=== PATIENT | male | born 1970 | race African-American/Black ===

== ENCOUNTER 2020-02-01 13:24 | IRF | payer OTHER, SELFPAY ==
[2020-02-01 13:25] VITALS: BP 119/82; PULSE 89; RESP 18; TEMP 36.9; O2SAT 100; BMI 28.3
--- NOTE | 2020-02-01 13:36 | ADMGEN ---
This patient, Emir Guzmán, was admitted to [facility] Room 226-01. Patient/family oriented to hospital policies and general routines including ID bracelet, bed and alarms, visiting hours, pain management, procedures, bathroom and other care routines, personal items, smoking policy, room service/diet, and visiting hours. Valuables list has been completed. Information on how to activate the Rapid Response Team has been discussed. Patient/Family are encouraged to report perceived risks to care and to ask questions if they do not understand what they are told or what they should do.
[2020-02-01] MEDS: methocarbamoL 750 MG TABLET PO ×2 (14:52→20:29)
[2020-02-01] MEDS: SENNOSIDES 8.6 MG TABLET PO (18:01)
[2020-02-01] MEDS: MIRTAZAPINE 15 MG TABLET PO (20:29)
[2020-02-01 22:00] VITALS: BP 119/72; PULSE 89; RESP 18; TEMP 37; O2SAT 100
[2020-02-02] MEDS: methocarbamoL 750 MG TABLET PO ×4 (02:07→20:11)
[2020-02-02 04:23] LABS: Basophils Absolute Auto 0.1 K/mm3 (0.0-0.1); Basophils Percent Auto 0.7 % (0.2-1.2); Eosinophils Absolute Auto 0.6 K/mm3 (0-0.3); Eosinophils Percent Auto 4.6 % (0-4.4); Hematocrit 32.9 % (42.0-52.0); Immature Granulocyte Absolute 0.33 K/mm3 (0.00-0.031); Immature Granulocyte Percent A 2.6 % (0-0.5); Lymphocytes Percent Auto 21.7 % (18.3-44.2); Mean Corpuscular HGB Conc 30.4 g/dl (32-36); Mean Corpuscular Hemoglobin 22.9 pg (26-34); Mean Corpuscular Volume 75.3 fl (80-100); Monocytes Absolute Auto 1.5 K/mm3 (0.1-0.6); Monocytes Percent Auto 11.4 % (2.6-8.5); Neutrophils Absolute Auto 7.6 K/mm3 (1.3-6.7); Platelet Count Result 451 k/mm3 (150-375); Red Blood Count 4.37 M/mm3 (4.6-6.20); Red Cell Distribution Width 14.2 % (11.5-14.5); White Blood Count 12.9 K/mm3 (4.5-10.0)
[2020-02-02 04:36] LABS: Blood Urea Nitrogen 21 mg/dL (9-20); Calcium 9.2 mg/dL (8.4-10.2); Carbon Dioxide 27 mmol/L (22-30); Chloride 107 mmol/L (98-107); Estimated CRCL calculation 92 ml/min; Estimated Glomerular Filt Rate > 60; Glucose 108 mg/dL (75-110); Potassium 4.5 mmol/L (3.4-5.0); Sodium 139 mmol/L (137-145)
[2020-02-02 06:00] VITALS: BP 134/92; PULSE 89; RESP 16; TEMP 37.1; O2SAT 99
[2020-02-02] MEDS: SENNOSIDES 8.6 MG TABLET PO ×2 (09:04→17:24)
--- NOTE | 2020-02-02 12:00 | WPDREHABHP ---
H&P: HPI History of Present Illness Chief complaint: Cervical myelopathy Narrative: Emir Guzmán is a 50 year old male HISTORY OF PRESENT ILLNESS: The patient's primary rehab impairment category is 0 5-spinal cord dysfunction -nontraumatic The etiologic diagnosis is cervical myelopathy/ radiculopathy I saw this patient [id number] on February 02, 2020 at 12 noon The patient is a 50-year-old right-handed male with a past medical history of lumbar spondylosis status post L4-L5/L5-S1 spinal fusion who was found to have a broken screws at S1 as well as L5 on the left. MRI also demonstrated lumbar stenosis from L3-S1. He had a revision at L4-S1 as well as extension of the fusion to L3 with a TLIF L3-4 followed by L3 laminectomy on October 26, [address] Vidal. he recovered well and reported resolution of his preoperative back pain and lower extremity radicular symptoms. He presented to [facility] on January 25, 2020 with neck pain associated with bilateral upper extremity radicular pain, numbness to his fingers a loss of dexterity. MRI reveals cervical myelopathy/radiculopathy. Orthopedic / spine was consulted and the patient underwent C3-C6 laminectomy with the same physician. Postoperatively he has experienced acute postoperative pain and acute blood-loss anemia. His respiratory status is stable on room air. Physical and occupational therapy recommended inpatient rehabilitation is Therapy was initiated at the acute care facility and the patient transferred to us from [facility] on February 01, 2020 on FALLS OR SURGERIES: The patient has had major surgeries in the 100 days prior to admission. They had falls in the past year. They had falls with injury in the past year. PAST MEDICAL HISTORY: anxiety, cardiac dysrhythmia, carpal tunnel syndrome, cervical stenosis of the spinal cord, depression lumbar radiculopathy. PAST SURGICAL HISTORY: Carpal tunnel surgery, cervical fusion, cyst removal from head, bilateral inguinal and umbilical hernia repair, lumbar spine fusion, lumbar fusion with revision of the hardware October 26, 2019 SOCIAL HISTORY: the patient lives with his in a 1 level home with 3 steps to enter. He was independent prior. 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 The patient is available to assist in followingRehab if necessary. Current smoker 3 to 4 cigarettes per day no alcohol use quit in 2016 FAMILY HISTORY: not related to his current illness PRIOR LEVEL OF FUNCTION: Eating was INDEPENDENT Oral Care was INDEPENDENT Toileting Hygiene was INDEPENDENT Shower/Bathing was INDEPENDENT Upper Body Dressing was INDEPENDENT Lower Body Dressing was INDEPENDENT Donning/Harwood Footwear was INDEPENDENT Rolling Left and Right was INDEPENDENT Sit to Lying was INDEPENDENT Lying to Sitting was INDEPENDENT Sit to Stand was INDEPENDENT Bed to Chair Transfers was INDEPENDENT Toilet Transfers was INDEPENDENT Walking was INDEPENDENT 999 feet with NO DEVICE Wheelchair Mobility was NOT APPLICABLE PRIOR TO ADMISSION Stairs were completely independent CURRENT LEVEL OF FUNCTION: Eating was independent Oral Care was [ supervision or touch assistance] Toileting Hygiene was partial moderate Shower/Bathing was partial moderate Upper Body Dressing was partial moderate Lower Body Dressing was partial moderate Donning/Harwood Footwear was partial moderate Rolling Left and Right was partial moderate Sit to Lying was partial moderate Lying to Sitting was partial moderate Sit to Stand was partial moderate Bed to Chair Transfers were partial moderate Toilet Transfers were partial moderate Walking was 200 feet with rolling walker partial moderate Wheelchair Mobility was not tested Stairs were not tested GOALS: Our therapists will evaluate the patient and establish the goals. However, upon pre-admission screening
[2020-02-02 13:36] VITALS: BMI 28.3
[2020-02-02 14:00] VITALS: BP 129/82; PULSE 94; RESP 18; TEMP 37.7; O2SAT 100
--- NOTE | 2020-02-02 14:43 | PCCCNOTE ---
On 02/02/20, the student, [Ari Huertas ], provided care and completed [facility] documentation on this patient. I have reviewed the student's documentation and agree with the findings.
--- NOTE | 2020-02-02 15:54 | RPD ---
INDIVIDUALIZED PLAN OF CARE FOR Emir Guzmán Brief Synthesis of Pre-Admission Screen, Post-Admission Evaluation and Therapy Evaluations: The patient presents to rehab with cervical meylopathy/radiculopathy. Comorbidities include status post C3, C4, C5, C6 laminoplasty, acute postoperative pain, acute blood loss anemia, depression, and carpal tunnel syndrome.The patient?s needs will be best met in an intensive program vs. at a lower level of care. The patient requires physician services for medical oversight, management of post-op complications in setting of present comorbidities, and pain management. The patient requires nursing services for anticoagulation therapy, DVT prophylactics, infection protection, medication management and education, pressure relief, and wound care. Deficits include:ADLs, Balance, Endurance, Family Training/Education, Mobility, Pain Management, ROM, Safety, Strength, and Transfers. Iron Worker/Case Management for: Discharge Planning and Patient/Family Counseling Physical Therapy: 5 days per week for 90 minutes. Treatments may include: Therapeutic Exercise, Gait Training, Neuromuscular Re-education, Transfer Training, Community Reintegration, Bed Mobility, Patient/Family Education, Wheelchair Mobility Group Therapy/Concurrent Therapy Rationales: -Improve attention span during functional activities in a distracted environment. -Enhance problem solving and/or adequate judgment skills during functional activities in a distracted environment. -Promote increased safety awareness in a distracted environment to reduce fall risk with functional tasks, transfers, and ambulation to allow a more safe, self-sufficient return to the home environment. -Improve dynamic balance skills to promote safety and independence with functional activities in a distracted environment for maximum gain. Occupational Therapy: 5 days per week for 90 minutes. Treatments may include: Therapeutic Exercise, Therapeutic Activity, Cognitive Training, Self-Care Transfer Training, Community Reintegration, Home Management, Patient/Family Education, Wheelchair Mobility Training, Energy Conservation Training Group Therapy/Concurrent Therapy Rationales: -Allow therapist to observe and teach generalization and carry-over of skills learned in individual therapy. -Enhance problem solving and sequencing skills during therapeutic activities in a distracted environment. -Promote increased safety awareness in a realistic setting to reduce fall risk with functional tasks due to visual and verbal distractions. -Increase functional level with ADLs, ADL transfers and use of adaptive equipment through therapeutic activities with others while promoting safety to allow a more safe, self-sufficient return home. Medical Prognosis: Good Anticipated Length of Stay: 7 days Rehab Goals: Eating Goal: 06-Independent Oral Hygiene Goal: 06-Independent Toileting Hygiene Goal: 06-Independent Shower/Bathe Self Goal: 04-Supervision or Touching Assistance Upper Body Dressing Goal: 06-Independent Lower Body Dressing Goal: 06-Independent Putting On/Taking Off Footwear Goal: 06-Independent Rolling Left and Right Goal: 06-Independent Sit to Lying Goal: 06-Independent Lying to Sitting on Side of Bed Goal: 06-Independent Sit to Stand Goal: 06-Independent Chair/Nas-sp-Wdvsw Transfer Goal: 06-Independent Toilet Transfer Goal: 06-Independent Car Transfer Goal: 06-Independent Walk 10' Goal: 06-Independent Walk 50' with Two Turns Goal: 06-Independent Walk 150' Goal: 06-Independent Walk 10' on Uneven Surface Goal: 06-Independent 1 Step (Curb) Goal: 06-Independent 4 Steps Goal: 06-Independent 12 Steps Goal Score: 06-Independent Picking Up Object Goal: 06-Independent Wheel 50' with Two Turns Score: 06-Independent Wheel 150' Goal: 06-Independent Anticipated discharge destination: Home
[2020-02-02] MEDS: MIRTAZAPINE 15 MG TABLET PO (20:11)
[2020-02-02 20:35] VITALS: BP 121/81; PULSE 86; RESP 16; TEMP 37.2; O2SAT 100
[2020-02-03] MEDS: methocarbamoL 750 MG TABLET PO ×4 (01:44→20:21)
[2020-02-03 05:50] VITALS: BP 137/90; PULSE 92; RESP 16; TEMP 37.1; O2SAT 100
[2020-02-03 08:00] VITALS: PULSE 84; RESP 17; O2SAT 100
[2020-02-03] MEDS: SENNOSIDES 8.6 MG TABLET PO ×2 (09:40→18:16)
[2020-02-03 14:00] VITALS: BP 119/68; PULSE 84; RESP 17; TEMP 37.3; O2SAT 100
--- NOTE | 2020-02-03 17:10 | WPDNEURORHBP ---
Subjective Date/time seen: 02/03/20 17:10 Interval history: this 50-year-old gentleman is here after having had a surgery for his cervical myelopathy/radiculopathy and prior to that a few months before he had the lumbar fusion also. He is walking better and upper extremity strength is also improving however complains of sexual and bladder dysfunction in the form of very little erection and also dribbling or seems like overflow incontinence most likely related to spinal cord dysfunction and also the nerve root dysfunction in his lower back it is also likely the patient may be having the effects from the medication he is on He denies any headache nausea vomiting chest pain shortness of breath fever chills sore throat Review of Systems Review of Systems: All systems reviewed & are unremarkable except as noted in HPI and below Functional Status Ambulation Ability Ability to Ambulate 10 Feet: Minimum Assistance X 1 Ability to Ambulate 50 Feet With 2 Turns: Minimum Assistance X 1 Ability to Ambulate 150 Feet: Minimum Assistance X 1 Ambulation Assistive Devices: Walker, Wheeled Transfers Ability Ability to Transfer In/Out of Chair: Standby Assistance Exam Const: General: comfortable and no acute distress HENMT: General nose exam: Normal nares present Mouth: Yes moist mucous membranes Eyes: General: appearance normal, both eyes and all related structures Neck: Neck: supple and no JVD Other: the incision at the back part of his neck is clean and healthy Resp: Effort & Inspection: normal respiratory effort Auscultation: clear to auscultation bilaterally Cardio: Rate: regular rate Rhythm: regular rhythm GI: GI Palp: Yes Soft to palpation Auscultation: normal bowel sounds Back/Spine/Pelvis: Other: the incision in the lower back is clean and healthy Skin: General skin exam: normal color and no rashes or lesions noted Neuro: Other: patient's mental status is normal cranial examination is normal is strength the lower extremities is worse than the upper extremities he clearly has a paraparetic gait with relatively high tender reflexes in the lower extremities and also sensory deficit and decreased his strength in the upper extremities and is barely able to lift the upper extremities up to the horizontal level with relatively diminished reflexes and the sensory deficit Extrem: General: normal to inspection Psych: Mental Status: mental status grossly normal Objective Data Vital Signs Vital Signs: Vital Signs - 24 hr 02/02/20 20:35 02/03/20 05:50 02/03/20 14:00 Temperature 37.2 C 37.1 C 37.3 C Pulse Rate 86 92 84 Respiratory Rate 16 16 17 Blood Pressure 121/81 137/90 119/68 Pulse Oximetry 100 100 100 Intake/Output Intake/Output: Intake & Output 01/31/20 02/01/20 02/02/20 02/03/20 23:59 23:59 23:59 23:59 Intake Total 480 1080 600 Balance 480 1080 600 Meds/Results Medications: Active Medications Generic Name Dose Route Start Last Admin Trade Name Freq PRN Reason Stop Dose Admin Hydrocodone Bitart/Acetaminophen 1 tab 02/01/20 13:58 02/03/20 14:01 Circle 10-325 Mg PO 1 tab Q4H PRN Administration Pain Methocarbamol 750 mg 02/01/20 14:00 02/03/20 14:01 Robaxin PO 750 mg Q6H EDWIN Administration Mirtazapine 15 mg 02/01/20 21:00 02/02/20 20:11 Remeron PO 15 mg HS EDWIN Administration Olanzapine 2.5 mg 02/02/20 09:00 02/03/20 09:40 Zyprexa PO 2.5 mg DAILY EDWIN Administration Polyethylene Glycol 17 gm 02/01/20 13:58 Miralax PO DAILY PRN Constipation Senna 8.6 mg 02/01/20 17:00 02/03/20 09:40 Senokot Tablet PO 8.6 mg BID EDWIN Administration Progress Note: A&P Assessment and Plan (1) Bladder dysfunction: Code(s): N31.9 - Neuromuscular dysfunction of bladder, unspecified Status: Acute (2) Sexual dysfunction: Code(s): R37 - Sexual dysfunction, unspecified Status: Acute Additional Plan I will have ur
[2020-02-03 20:00] VITALS: BP 116/58; PULSE 89; RESP 20; TEMP 37.1; O2SAT 100
[2020-02-03] MEDS: MIRTAZAPINE 15 MG TABLET PO (20:21)
[2020-02-04] MEDS: methocarbamoL 750 MG TABLET PO ×4 (04:24→20:21)
[2020-02-04 05:31] LABS: Basophils Absolute Auto 0.1 K/mm3 (0.0-0.1); Basophils Percent Auto 0.6 % (0.2-1.2); Eosinophils Absolute Auto 0.4 K/mm3 (0-0.3); Eosinophils Percent Auto 2.9 % (0-4.4); Hematocrit 32.5 % (42.0-52.0); Hemoglobin 9.8 g/dL (14.0-18.0); Immature Granulocyte Absolute 0.57 K/mm3 (0.00-0.031); Immature Granulocyte Percent A 4.4 % (0-0.5); Lymphocytes Absolute Auto 2.78 K/mm3 (0.9-3.2); Lymphocytes Percent Auto 21.7 % (18.3-44.2); Mean Corpuscular HGB Conc 30.2 g/dl (32-36); Mean Corpuscular Hemoglobin 22.9 pg (26-34); Mean Corpuscular Volume 75.9 fl (80-100); Mean Platelet Volume 10.1 fl (7.4-10.4); Monocytes Absolute Auto 1.5 K/mm3 (0.1-0.6); Monocytes Percent Auto 11.6 % (2.6-8.5); Neutrophils Absolute Auto 7.5 K/mm3 (1.3-6.7); Neutrophils Percent Auto 58.8 % (45.5-73.1); Platelet Count Result 551 k/mm3 (150-375); Red Blood Count 4.28 M/mm3 (4.6-6.20); Red Cell Distribution Width 14.3 % (11.5-14.5); White Blood Count 12.8 K/mm3 (4.5-10.0)
[2020-02-04 05:39] VITALS: BP 108/67; PULSE 75; RESP 20; TEMP 37.2; O2SAT 100
[2020-02-04] MEDS: SENNOSIDES 8.6 MG TABLET PO ×2 (09:48→17:55)
[2020-02-04 09:50] VITALS: PULSE 78; RESP 20; O2SAT 99
[2020-02-04 14:00] VITALS: BP 129/76; PULSE 85; RESP 17; TEMP 37.2; O2SAT 100
--- NOTE | 2020-02-04 18:18 | WPDNEURORHBP ---
Subjective Date/time seen: 02/04/20 18:18 Interval history: this 48-year-old is here because of Cervical myelopathy/cervical radiculopathy and also status post lumbar fusion not too long low along with recent posterior cervical fusion he is complaining of headache which originates from his neck and I have asked the nurses to go ahead and give him a scheduled pain medication as the patient would need it beside the headache the patient denies any change in the mental status no fever no chills no sore throat no nausea no vomiting he is waiting for the urologist to see him for his sexual dysfunction and also the bladder dysfunction Review of Systems Review of Systems: All systems reviewed & are unremarkable except as noted in HPI and below Functional Status Ambulation Ability Ability to Ambulate 10 Feet: Contact Guard Ability to Ambulate 50 Feet With 2 Turns: Minimum Assistance X 1 Ability to Ambulate 150 Feet: Minimum Assistance X 1 Ambulation Assistive Devices: Walker, Wheeled Transfers Ability Ability to Transfer In/Out of Chair: Standby Assistance Exam Const: General: comfortable and no acute distress HENMT: General nose exam: Normal nares present Mouth: Yes moist mucous membranes Eyes: General: appearance normal, both eyes and all related structures Neck: Neck: supple and no JVD Other: the incision from the posterior cervical fusion is clean Resp: Effort & Inspection: normal respiratory effort Auscultation: clear to auscultation bilaterally Cardio: Rate: regular rate Rhythm: regular rhythm GI: GI Palp: Yes Soft to palpation Auscultation: normal bowel sounds Skin: General skin exam: normal color and no rashes or lesions noted Neuro: Other: patient's speech language functions are normal cranial examination is normal he is improving with his paraparesis and also the lower more than the upper extremity weakness Extrem: General: normal to inspection Psych: Mental Status: mental status grossly normal Objective Data Vital Signs Vital Signs: Vital Signs - 24 hr 02/03/20 20:00 02/04/20 05:39 02/04/20 09:50 Temperature 37.1 C 37.2 C Pulse Rate 89 75 78 Respiratory Rate 20 20 20 Blood Pressure 116/58 L 108/67 Pulse Oximetry 100 100 99 02/04/20 14:00 Temperature 37.2 C Pulse Rate 85 Respiratory Rate 17 Blood Pressure 129/76 Pulse Oximetry 100 Intake/Output Intake/Output: Intake & Output 06/11/02/02/20 02/03/20 02/04/20 23:59 23:59 23:59 23:59 Intake Total 480 1080 840 600 Balance 480 1080 840 600 Meds/Results Medications: Active Medications Generic Name Dose Route Start Last Admin Trade Name Freq PRN Reason Stop Dose Admin Hydrocodone Bitart/Acetaminophen 1 tab 02/04/20 17:00 [place] 10-325 Mg PO Q4HR EDWIN Methocarbamol 750 mg 02/01/20 14:00 02/04/20 13:42 Robaxin PO 750 mg Q6H EDWIN Administration Mirtazapine 15 mg 02/01/20 21:00 02/03/20 20:21 Remeron PO 15 mg HS EDWIN Administration Olanzapine 2.5 mg 02/02/20 09:00 02/04/20 09:48 Zyprexa PO 2.5 mg DAILY EDWIN Administration Polyethylene Glycol 17 gm 02/01/20 13:58 Miralax PO DAILY PRN Constipation Senna 8.6 mg 02/01/20 17:00 02/04/20 17:55 Senokot Tablet PO 8.6 mg BID EDWIN Administration Labs Labs: Laboratory Results - last 24 hr 02/04/20 04:53 WBC 12.8 H RBC 4.28 L Hgb 9.8 L Hct 32.5 L MCV 75.9 L MCH 22.9 L MCHC 30.2 L RDW 14.3 Plt Count 551 H MPV 10.1 Immature Gran % (Auto) 4.4 H Neut % (Auto) 58.8 Lymph % (Auto) 21.7 [place]idan % (Auto) 11.6 H Eos % (Auto) 2.9 Baso % (Auto) 0.6 Lymph # (Auto) 2.78 [place]idan # (Auto) 1.5 H Eos # (Auto) 0.4 H Baso # (Auto) 0.1 Abs Immat Gran (auto) 0.57 H Absolute Neuts (auto) 7.5 H Absolute Nucleated RBC 0.0 Nucleated RBC % 0.0 Progress Note: A&P Assessment and Plan (1) Sexual dysfunction: Code(s): R37 - Sexual dysfunction, unspecified Status: Acute (2) Bladde
--- NOTE | 2020-02-04 19:12 | WPDURCON ---
Assessment and Plan Assessment and plan (1) Sexual dysfunction: Code(s): R37 - Sexual dysfunction, unspecified Status: Acute Assessment and Plan: His main complaint is ED and delayed ejaculation. I arec a trial of oral agents. Generic Viagra or Cialis. Explained side effects and expected results. He will get a script from our office. If no success he may need injection and penile US with Dr. Callahan (2) Bladder dysfunction: Code(s): N31.9 - Neuromuscular dysfunction of bladder, unspecified Status: Acute Assessment and Plan: Voiding is reasonably normal. Offered to check as out patient and confirm low PVR. Urology Consult Note HPI Date Seen: 02/04/20 Requesting Physician: Guanakito Christianson MD Primary Care Provider: Ricci Ni, Consult Narrative Narrative: Emir Guzmán is a 50 year old male with admission to rehab with post operative lumbar and cervical recovery. He asked for evaluation secondary to ED. Has worsening ability to maintain erection and delayed orgasm. No nocturnal erections. Normal libido. Has not tried any treatment. Much worse since spine issues. Review of Systems Eyes: Eyes: Reports no additional eye complaints ENT: Reports system reviewed and no additional complaints, except as documented and Reports Normal hearing present Cardiovascular: Cardiovascular: Reports no additional cardiovascular complaints Respiratory: Respiratory: Reports no additional respiratory complaints Gastrointestinal: Gastrointestinal: Reports no additional gastrointestinal complaints Genitourinary: Genitourinary: Denies hematuria, Denies dysuria, Denies urinary frequency, Denies urinary hesitancy, Denies urinary incontinence and Denies urinary urgency Musculoskeletal: Musculoskeletal: Reports as per HPI, Reports back pain and Reports neck pain Neurologic: Reports as per HPI Psychiatric: Psychiatric: Reports as per HPI [facility] Past Medical History Medical History (Updated 02/03/20 @ 17:14 by Guanakito Christianson MD) Cervical myelopathy Cervical radiculopathy Cervical spondylosis Surgical History Surgical History (Updated 02/02/20 @ 13:38 by Guanakito Christianson MD) S/P cervical spinal fusion S/P lumbar fusion Social History Social History Years smoked: 25 Smoking status: Current some day smoker Tobacco type: cigarettes Second hand tobacco smoke exposure: Yes Alcohol intake: never Substance use: never Substance use type: does not use Spiritual care concerns: No Meds Home Medications and Allergies Home Medications Medication Instructions Recorded Confirmed Type hydrocodone-acetaminophen 1 tablet PO Q4H PRN 02/01/20 02/01/20 History methocarbamol 750 mg PO Q6H 02/01/20 02/01/20 History mirtazapine 15 mg PO HS 02/01/20 02/01/20 History olanzapine 2.5 mg PO DAILY 02/01/20 02/01/20 History polyethylene glycol 3350 [Miralax] 17 g PO DAILY PRN 02/01/20 02/01/20 History sennosides 8.6 mg PO BID 02/01/20 02/01/20 History Allergies Allergy/AdvReac Type Severity Reaction Status Date / Time No Known Allergies Allergy Verified 02/01/20 14:08 Vital Signs Vital Signs - 24 hr 02/03/20 20:00 02/04/20 05:39 02/04/20 09:50 Temperature 37.1 C 37.2 C Pulse Rate 89 75 78 Respiratory Rate 20 20 20 Blood Pressure 116/58 L 108/67 Pulse Oximetry 100 100 99 02/04/20 14:00 Temperature 37.2 C Pulse Rate 85 Respiratory Rate 17 Blood Pressure 129/76 Pulse Oximetry 100 Exam Const: General: no acute distress Eyes: General: appearance normal, both eyes and all related structures Resp: Effort & Inspection: normal respiratory effort Cardio: Rate: regular rate GI: Auscultation: normal bowel sounds : Male General Exam: Yes normal external exam Results Labs CBC & Chem 7: 02/04/20 04:53 02/02/20 04:17 Labs: Short CBC 02/04/20 Range/Units 04:53
[2020-02-04] MEDS: MIRTAZAPINE 15 MG TABLET PO (20:21)
[2020-02-04 22:00] VITALS: BP 109/68; PULSE 102; RESP 20; TEMP 37.2; O2SAT 100
[2020-02-05] MEDS: methocarbamoL 750 MG TABLET PO ×4 (01:26→21:21)
[2020-02-05 06:00] VITALS: BP 134/82; PULSE 78; RESP 20; TEMP 36.9; O2SAT 100
[2020-02-05] MEDS: LIDOCAINE 5% PATCH 1 PATCH TRANSDERM (09:41)
[2020-02-05] MEDS: SENNOSIDES 8.6 MG TABLET PO ×2 (09:42→18:45)
[2020-02-05] MEDS: NICOTINE (*PBKC) 14 MG PATCH 1 PATCH TRANSDERM (13:59)
[2020-02-05 14:00] VITALS: BP 110/73; PULSE 86; RESP 18; TEMP 37.3; O2SAT 100
[2020-02-05] MEDS: MIRTAZAPINE 15 MG TABLET PO (21:21)
[2020-02-05 22:00] VITALS: BP 130/71; PULSE 92; RESP 18; TEMP 37.7; O2SAT 100
[2020-02-06] MEDS: methocarbamoL 750 MG TABLET PO ×4 (01:31→20:32)
[2020-02-06 06:00] VITALS: BP 128/75; PULSE 82; RESP 18; TEMP 37.2; O2SAT 100
[2020-02-06 08:20] VITALS: PULSE 88; RESP 18; O2SAT 100
[2020-02-06] MEDS: LIDOCAINE 5% PATCH 1 PATCH TRANSDERM (08:49)
[2020-02-06] MEDS: SENNOSIDES 8.6 MG TABLET PO (08:51)
[2020-02-06] MEDS: NICOTINE (*PBKC) 14 MG PATCH 1 PATCH TRANSDERM (08:51)
--- NOTE | 2020-02-06 12:53 | PC.NURSE ---
Called Dr. Vidal office today regarding patient's janes being removed. Patient had been scheduled for staple removal on 02/06/2020 at 10:00 a.m. Left message for call back for instructions.
[2020-02-06 14:00] VITALS: BP 127/78; PULSE 88; RESP 18; TEMP 36.8; O2SAT 100
--- NOTE | 2020-02-06 15:11 | WPDNEURORHBP ---
Subjective Date/time seen: 02/06/20 15:11 Interval history: this 50-year-old has been here because of cervical myelopathy status post surgery on his cervical spine he has intact janes and will check with surgeon when the janes need to be removed. The urologist has seen him and put him on Viagra which will gait as outpatient when he has a follow-up is walking fairly good however he still is paraparetic has abnormal wide-based gait and tendency or a risk for fall which we discussed with him the team conference he denies any nausea vomiting chest pain shortness of breath his tells us that the patient has had a problem with drugs in the past and will keep that in mind and cut back on his requirement of the narcotics patient also sees a psychiatrist as per his for his underlying psych issues Review of Systems Review of Systems: All systems reviewed & are unremarkable except as noted in HPI and below Functional Status Ambulation Ability Ability to Ambulate 10 Feet: Contact Guard Ability to Ambulate 50 Feet With 2 Turns: Contact Guard Ability to Ambulate 150 Feet: Contact Guard Ambulation Assistive Devices: Walker, Wheeled Transfers Ability Ability to Transfer In/Out of Chair: Standby Assistance Exam Const: General: comfortable and no acute distress HENMT: General nose exam: Normal nares present Mouth: Yes moist mucous membranes Eyes: General: appearance normal, both eyes and all related structures Neck: Other: decision is clean and healthy Resp: Effort & Inspection: normal respiratory effort Auscultation: clear to auscultation bilaterally Cardio: Rate: regular rate Rhythm: regular rhythm GI: GI Palp: Yes Soft to palpation Auscultation: normal bowel sounds Skin: General skin exam: normal color and no rashes or lesions noted Neuro: Other: patient awake and alert well oriented with improving lower extremity more so than the a upper extremity weakness but has wide-based gait clearly at times ataxic and positive Romberg and and able to perform tiptoe and heel walking Extrem: General: normal to inspection Psych: Mental Status: mental status grossly normal Objective Data Vital Signs Vital Signs: Vital Signs - 24 hr 02/05/20 22:00 02/06/20 06:00 02/06/20 14:00 Temperature 37.7 C H 37.2 C 36.8 C Pulse Rate 92 82 88 Respiratory Rate 18 18 18 Blood Pressure 130/71 128/75 127/78 Pulse Oximetry 100 100 100 Intake/Output Intake/Output: Intake & Output 02/03/20 02/04/20 02/05/20 02/06/20 23:59 23:59 23:59 23:59 Intake Total 663 910 6903 1000 Balance 534 413 0091 1000 Meds/Results Medications: Active Medications Generic Name Dose Route Start Last Admin Trade Name Freq PRN Reason Stop Dose Admin Hydrocodone Bitart/Acetaminophen 1 tab 02/06/20 15:00 02/06/20 14:48 [place] 10-325 Mg PO 1 tab Q6H EDWIN Administration Lidocaine 1 patch 02/05/20 09:00 02/06/20 08:49 Lidoderm TRANSDERM 1 patch DAILY EDWNI Administration Methocarbamol 750 mg 02/01/20 14:00 02/06/20 14:48 Robaxin PO 750 mg Q6H EDWIN Administration Mirtazapine 15 mg 02/01/20 21:00 02/05/20 21:21 Remeron PO 15 mg HS EDWIN Administration Nicotine 1 patch 02/05/20 09:00 02/06/20 08:51 Nicoderm Cq 14 Mg TRANSDERM 1 patch QAM EDWIN Administration Olanzapine 2.5 mg 02/02/20 09:00 02/06/20 08:51 Zyprexa PO 2.5 mg DAILY EDWIN Administration Polyethylene Glycol 17 gm 02/01/20 13:58 Miralax PO DAILY PRN Constipation Senna 8.6 mg 02/01/20 17:00 02/06/20 08:51 Senokot Tablet PO 8.6 mg BID EDWIN Administration Progress Note: A&P Assessment and Plan (1) Sexual dysfunction: Code(s): R37 - Sexual dysfunction, unspecified Status: Acute (2) Bladder dysfunction: Code(s): N31.9 - Neuromuscular dysfunction of bladder, unspecified Status: Acute (3) S/P lumbar fusion: Code(s): Z98.1 - Arthrodesis status Status: Acute
[2020-02-06] MEDS: MIRTAZAPINE 15 MG TABLET PO (20:32)
[2020-02-06 22:00] VITALS: BP 143/86; PULSE 76; RESP 18; TEMP 36.7; O2SAT 100
[2020-02-07] MEDS: methocarbamoL 750 MG TABLET PO ×4 (02:39→21:14)
[2020-02-07 06:00] VITALS: BP 131/90; PULSE 80; RESP 18; TEMP 37.2; O2SAT 100
[2020-02-07] MEDS: LIDOCAINE 5% PATCH 1 PATCH TRANSDERM (09:39)
[2020-02-07] MEDS: NICOTINE (*PBKC) 14 MG PATCH 1 PATCH TRANSDERM (09:40)
--- NOTE | 2020-02-07 11:12 | PCPTNOTE ---
Emir Guzmán was evaluated for a wheeled walker on 02/07/2020 by this physical therapist. The wheeled walker will resolve patient's mobility limitations and will be used for ADL's within the home. The patient can safely use the wheeled walker. ?The wheeled walker will resolve the patient?s mobility deficits, including back pain, generalized LE weakness, and impaired balance/coordination. Jeannine Sams, PT, DPT
[2020-02-07 14:00] VITALS: BP 104/60; PULSE 86; RESP 17; TEMP 37.2; O2SAT 99
--- NOTE | 2020-02-07 15:02 | WPDNEURORHBP ---
Subjective Date/time seen: 02/07/20 15:02 Interval history: this 50-year-old is here after having had decompression for cervical spondylosis along with the cervical radiculopathy is pain is better controlled his engage in therapy and making progress denies any chest pain shortness of breath fever chills or sore throat Review of Systems Review of Systems: All systems reviewed & are unremarkable except as noted in HPI and below Functional Status Ambulation Ability Ability to Ambulate 10 Feet: Contact Guard Ability to Ambulate 50 Feet With 2 Turns: Minimum Assistance X 1 Ability to Ambulate 150 Feet: Minimum Assistance X 1 Ambulation Assistive Devices: Hand Hold Transfers Ability Ability to Transfer In/Out of Chair: Independent Exam Const: General: comfortable and no acute distress HENMT: General nose exam: Normal nares present Mouth: Yes moist mucous membranes Eyes: General: appearance normal, both eyes and all related structures Neck: Neck: supple and no JVD Other: incision is clean and healthy Resp: Effort & Inspection: normal respiratory effort Auscultation: clear to auscultation bilaterally Cardio: Rate: regular rate Rhythm: regular rhythm GI: GI Palp: Yes Soft to palpation Auscultation: normal bowel sounds Skin: General skin exam: normal color and no rashes or lesions noted Neuro: Other: mental status is normal and normal cranial examination and his generalized weakness is improving quite a bit Extrem: General: normal to inspection Psych: Mental Status: mental status grossly normal Objective Data Vital Signs Vital Signs: Vital Signs - 24 hr 02/06/20 22:00 02/07/20 06:00 Temperature 36.7 C 37.2 C Pulse Rate 76 80 Respiratory Rate 18 18 Blood Pressure 143/86 H 131/90 Pulse Oximetry 100 100 Intake/Output Intake/Output: Intake & Output 02/04/20 02/05/20 02/06/20 02/07/20 23:59 23:59 23:59 23:59 Intake Total 840 2040 1500 1000 Balance 840 2040 1500 1000 Meds/Results Medications: Active Medications Generic Name Dose Route Start Last Admin Trade Name Freq PRN Reason Stop Dose Admin Hydrocodone Bitart/Acetaminophen 1 tab 02/06/20 15:00 02/07/20 09:39 [place] 10-325 Mg PO 1 tab Q6H EDWIN Administration Lidocaine 1 patch 02/05/20 09:00 02/07/20 09:39 Lidoderm TRANSDERM 1 patch DAILY EDWIN Administration Methocarbamol 750 mg 02/01/20 14:00 02/07/20 09:39 Robaxin PO 750 mg Q6H EDWIN Administration Mirtazapine 15 mg 02/01/20 21:00 02/06/20 20:32 Remeron PO 15 mg HS EDWIN Administration Nicotine 1 patch 02/05/20 09:00 02/07/20 09:40 Nicoderm Cq 14 Mg TRANSDERM 1 patch QAM EDWIN Administration Olanzapine 2.5 mg 02/02/20 09:00 02/07/20 09:40 Zyprexa PO 2.5 mg DAILY EDWIN Administration Polyethylene Glycol 17 gm 02/01/20 13:58 Miralax PO DAILY PRN Constipation Senna 8.6 mg 02/01/20 17:00 02/07/20 09:41 Senokot Tablet PO Not Given BID EDWIN Progress Note: A&P Assessment and Plan (1) Sexual dysfunction: Code(s): R37 - Sexual dysfunction, unspecified Status: Acute (2) Bladder dysfunction: Code(s): N31.9 - Neuromuscular dysfunction of bladder, unspecified Status: Acute (3) S/P lumbar fusion: Code(s): Z98.1 - Arthrodesis status Status: Acute (4) S/P cervical spinal fusion: Code(s): Z98.1 - Arthrodesis status Status: Acute (5) Cervical radiculopathy: Code(s): M54.12 - Radiculopathy, cervical region Status: Acute (6) Cervical spondylosis: Code(s): M47.812 - Spondylosis without myelopathy or radiculopathy, cervical region Status: Acute (7) Cervical myelopathy: Code(s): G95.9 - Disease of spinal cord, unspecified Status: Acute Additional Plan I counseled him about not to start his hard labor which was doing before and also the need for further therapy he was receptive we will continue the medical manage
[2020-02-07] MEDS: SENNOSIDES 8.6 MG TABLET PO (15:46)
[2020-02-07] MEDS: MIRTAZAPINE 15 MG TABLET PO (21:13)
[2020-02-07 22:00] VITALS: BP 126/87; PULSE 91; RESP 18; TEMP 37.3; O2SAT 100
[2020-02-08] MEDS: methocarbamoL 750 MG TABLET PO ×4 (03:01→20:44)
[2020-02-08 06:00] VITALS: BP 127/86; PULSE 81; RESP 18; TEMP 37; O2SAT 100
[2020-02-08] MEDS: LIDOCAINE 5% PATCH 1 PATCH TRANSDERM (08:41)
[2020-02-08] MEDS: SENNOSIDES 8.6 MG TABLET PO ×2 (08:42→15:34)
[2020-02-08] MEDS: NICOTINE (*PBKC) 14 MG PATCH 1 PATCH TRANSDERM (08:42)
--- NOTE | 2020-02-08 11:25 | WPDNEURORHBP ---
Subjective Date/time seen: 02/08/20 11:25 Interval history: this 50-year-old is here because of cervical myelopathy / cervical Diederich radiculopathy superimposed on the lumbar canal stenosis post surgery and also post surgery the recent 1 being the cervical surgery the sutures have been removed couple of days ago his complaining of some itchy spot at his neck however the there is no lesions noted and the left side of the shoulder and there is no soft tissue swelling at [place] he is doing well in the rehab and will be ready to be discharged over the weekend He denies to have any headache nausea vomiting chest pain shortness of breath fever chills sore throat Review of Systems Review of Systems: All systems reviewed & are unremarkable except as noted in HPI and below Functional Status Ambulation Ability Ability to Ambulate 10 Feet: Independent Ability to Ambulate 50 Feet With 2 Turns: Independent Ability to Ambulate 150 Feet: Independent Ambulation Assistive Devices: Walker, Wheeled Transfers Ability Ability to Transfer In/Out of Chair: Independent Exam Const: General: comfortable and no acute distress HENMT: General nose exam: Normal nares present Mouth: Yes moist mucous membranes Eyes: General: appearance normal, both eyes and all related structures Neck: Neck: supple and no JVD Resp: Effort & Inspection: normal respiratory effort Auscultation: clear to auscultation bilaterally Cardio: Rate: regular rate Rhythm: regular rhythm GI: GI Palp: Yes Soft to palpation Auscultation: normal bowel sounds Skin: General skin exam: normal color and no rashes or lesions noted Neuro: Other: patient is awake and alert well oriented time place and person he has not any distress overall is mental status examination is normal cranial exam shows normal the strength of the lower extremities in the upper extremities are improving Extrem: General: normal to inspection Psych: Mental Status: mental status grossly normal Objective Data Vital Signs Vital Signs: Vital Signs - 24 hr 02/08/20 14:00 02/08/20 21:44 02/09/20 06:00 Temperature 37.5 C 37.7 C H 36.7 C Pulse Rate 86 95 77 Respiratory Rate 18 18 18 Blood Pressure 128/69 127/81 136/99 H Pulse Oximetry 100 100 100 Intake/Output Intake/Output: Intake & Output 02/06/20 02/07/20 02/08/20 02/09/20 23:59 23:59 23:59 23:59 Intake Total 1500 1500 1440 480 Balance 1500 1500 1440 480 Meds/Results Medications: Active Medications Generic Name Dose Route Start Last Admin Trade Name Freq PRN Reason Stop Dose Admin Hydrocodone Bitart/Acetaminophen 1 tab 02/06/20 15:00 02/09/20 08:52 [place] 10-325 Mg PO 1 tab Q6H EDWIN Administration Lidocaine 1 patch 02/05/20 09:00 02/09/20 08:52 Lidoderm TRANSDERM 1 patch DAILY EDWIN Administration Methocarbamol 750 mg 02/01/20 14:00 02/09/20 08:52 Robaxin PO 750 mg Q6H EDWIN Administration Mirtazapine 15 mg 02/01/20 21:00 02/08/20 20:44 Remeron PO 15 mg HS EDWIN Administration Nicotine 1 patch 02/05/20 09:00 02/09/20 08:53 Nicoderm Cq 14 Mg TRANSDERM 1 patch QAM EDWIN Administration Olanzapine 2.5 mg 02/02/20 09:00 02/09/20 08:53 Zyprexa PO 2.5 mg DAILY EDWIN Administration Polyethylene Glycol 17 gm 02/01/20 13:58 Miralax PO DAILY PRN Constipation Senna 8.6 mg 02/01/20 17:00 02/09/20 08:53 Senokot Tablet PO 8.6 mg BID EDWIN Administration Labs Labs: Laboratory Results - last 24 hr 02/09/20 02/09/20 04:49 04:49 WBC 10.6 H RBC 4.26 L Hgb 9.6 L Hct 31.6 L MCV 74.2 L MCH 22.5 L MCHC 30.4 L RDW 14.5 Plt Count 606 H MPV 9.2 Immature Gran % (Auto) 1.4 H Neut % (Auto) 58.0 Lymph % (Auto) 27.4 [place] % (Auto) 9.5 H Eos % (Auto) 3.0 Baso % (Auto) 0.7 Lymph # (Auto) 2.89 [place] # (Auto) 1.0 H Eos # (Auto) 0.3 Baso # (Auto) 0.1 Abs Immat Gran (auto) 0.15 H Absolute Neuts (auto) 6.1 Absol
--- NOTE | 2020-02-08 13:26 | PCDIET ---
Nutrition Follow-Up Complete: No nutrition diagnosis at this time. Nutrition Goal: Patient to consume 75% of meals or greater. Goal met. Patient consuming 100% of most meals on regular diet. Patient reports good appetite. Likes the food and denies c/o. Last recorded weight is 94.9 kg. Recommend obtaining new weight. Bowel Motility: Last documented BM on 02/06/20. Labs Reviewed: No new BMP available. Meds Noted: Remeron, Miralax, Senna Additional Notes: Neck incision well approximated. No documented pressure sores. Will continue to monitor with same goal. Nutrition Monitoring and Evaluation: Follow up in 7 days.
[2020-02-08 14:00] VITALS: BP 128/69; PULSE 86; RESP 18; TEMP 37.5; O2SAT 100
[2020-02-08] MEDS: MIRTAZAPINE 15 MG TABLET PO (20:44)
[2020-02-08 21:44] VITALS: BP 127/81; PULSE 95; RESP 18; TEMP 37.7; O2SAT 100
[2020-02-09] MEDS: methocarbamoL 750 MG TABLET PO ×4 (02:37→20:00)
[2020-02-09 05:05] LABS: Basophils Absolute Auto 0.1 K/mm3 (0.0-0.1); Basophils Percent Auto 0.7 % (0.2-1.2); Eosinophils Absolute Auto 0.3 K/mm3 (0-0.3); Hematocrit 31.6 % (42.0-52.0); Hemoglobin 9.6 g/dL (14.0-18.0); Immature Granulocyte Absolute 0.15 K/mm3 (0.00-0.031); Immature Granulocyte Percent A 1.4 % (0-0.5); Lymphocytes Absolute Auto 2.89 K/mm3 (0.9-3.2); Lymphocytes Percent Auto 27.4 % (18.3-44.2); Mean Corpuscular HGB Conc 30.4 g/dl (32-36); Mean Corpuscular Hemoglobin 22.5 pg (26-34); Mean Corpuscular Volume 74.2 fl (80-100); Mean Platelet Volume 9.2 fl (7.4-10.4); Monocytes Percent Auto 9.5 % (2.6-8.5); Neutrophils Absolute Auto 6.1 K/mm3 (1.3-6.7); Platelet Count Result 606 k/mm3 (150-375); Red Blood Count 4.26 M/mm3 (4.6-6.20); Red Cell Distribution Width 14.5 % (11.5-14.5); White Blood Count 10.6 K/mm3 (4.5-10.0)
[2020-02-09 05:16] LABS: Blood Urea Nitrogen 16 mg/dL (9-20); Carbon Dioxide 30 mmol/L (22-30); Chloride 103 mmol/L (98-107); Estimated CRCL calculation 92 ml/min; Estimated Glomerular Filt Rate > 60; Glucose 109 mg/dL (75-110); Potassium 4.5 mmol/L (3.4-5.0); Sodium 137 mmol/L (137-145)
[2020-02-09 06:00] VITALS: BP 136/99; PULSE 77; RESP 18; TEMP 36.7; O2SAT 100
[2020-02-09] MEDS: LIDOCAINE 5% PATCH 1 PATCH TRANSDERM (08:52)
[2020-02-09] MEDS: NICOTINE (*PBKC) 14 MG PATCH 1 PATCH TRANSDERM (08:53)
[2020-02-09] MEDS: SENNOSIDES 8.6 MG TABLET PO ×2 (08:53→15:47)
--- NOTE | 2020-02-09 11:28 | WPDNEURORHBP ---
Subjective Date/time seen: 02/09/20 11:28 Interval history: this 50-year-old is here because of cervical myelopathy /radiculopathy lumbar canal stenosis lumbar radiculopathy he is improving quite well denies any headache nausea vomiting chest pain shortness of breath fever chills sore throat Review of Systems Review of Systems: All systems reviewed & are unremarkable except as noted in HPI and below Functional Status Ambulation Ability Ability to Ambulate 10 Feet: Independent Ability to Ambulate 50 Feet With 2 Turns: Independent Ability to Ambulate 150 Feet: Independent Ambulation Assistive Devices: Walker, Wheeled Transfers Ability Ability to Transfer In/Out of Chair: Independent Exam Const: General: comfortable and no acute distress HENMT: General nose exam: Normal nares present Mouth: Yes moist mucous membranes Eyes: General: appearance normal, both eyes and all related structures Neck: Neck: supple and no JVD Other: the incision looks clean and healthy the sutures have been removed there is no skin spots or any tenderness noted he does have indeed muscle spasm on the left side to the cervical spine he had the surgery done and which is not any visual after having had the cervical surgery and having radiculopathy Resp: Effort & Inspection: normal respiratory effort Auscultation: clear to auscultation bilaterally Cardio: Rate: regular rate Rhythm: regular rhythm Skin: General skin exam: normal color and no rashes or lesions noted Neuro: Other: patient is awake and alert well oriented to time place and person has normal speech and language function normal cranial over improving lower extremity more so than the upper extremity weakness Extrem: General: normal to inspection Psych: Mental Status: mental status grossly normal Objective Data Vital Signs Vital Signs: Vital Signs - 24 hr 02/08/20 14:00 02/08/20 21:44 02/09/20 06:00 Temperature 37.5 C 37.7 C H 36.7 C Pulse Rate 86 95 77 Respiratory Rate 18 18 18 Blood Pressure 128/69 127/81 136/99 H Pulse Oximetry 100 100 100 Intake/Output Intake/Output: Intake & Output 02/06/20 02/07/20 02/08/20 02/09/20 23:59 23:59 23:59 23:59 Intake Total 1500 1500 1440 480 Balance 1500 1500 1440 480 Meds/Results Medications: Active Medications Generic Name Dose Route Start Last Admin Trade Name Freq PRN Reason Stop Dose Admin Hydrocodone Bitart/Acetaminophen 1 tab 02/06/20 15:00 02/09/20 08:52 [place] 10-325 Mg PO 1 tab Q6H EDWIN Administration Lidocaine 1 patch 02/05/20 09:00 02/09/20 08:52 Lidoderm TRANSDERM 1 patch DAILY EDWIN Administration Methocarbamol 750 mg 02/01/20 14:00 02/09/20 08:52 Robaxin PO 750 mg Q6H EDWIN Administration Mirtazapine 15 mg 02/01/20 21:00 02/08/20 20:44 Remeron PO 15 mg HS EDWIN Administration Nicotine 1 patch 02/05/20 09:00 02/09/20 08:53 Nicoderm Cq 14 Mg TRANSDERM 1 patch QAM EDWIN Administration Olanzapine 2.5 mg 02/02/20 09:00 02/09/20 08:53 Zyprexa PO 2.5 mg DAILY EDWIN Administration Polyethylene Glycol 17 gm 02/01/20 13:58 Miralax PO DAILY PRN Constipation Senna 8.6 mg 02/01/20 17:00 02/09/20 08:53 Senokot Tablet PO 8.6 mg BID EDWIN Administration Labs Labs: Laboratory Results - last 24 hr 02/09/20 02/09/20 04:49 04:49 WBC 10.6 H RBC 4.26 L Hgb 9.6 L Hct 31.6 L MCV 74.2 L MCH 22.5 L MCHC 30.4 L RDW 14.5 Plt Count 606 H MPV 9.2 Immature Gran % (Auto) 1.4 H Neut % (Auto) 58.0 Lymph % (Auto) 27.4 [place] % (Auto) 9.5 H Eos % (Auto) 3.0 Baso % (Auto) 0.7 Lymph # (Auto) 2.89 [place] # (Auto) 1.0 H Eos # (Auto) 0.3 Baso # (Auto) 0.1 Abs Immat Gran (auto) 0.15 H Absolute Neuts (auto) 6.1 Absolute Nucleated RBC 0.0 Nucleated RBC % 0.0 Sodium 137 Potassium 4.5 Chloride 103 Carbon Dioxide 30 BUN 16 Creatinine 0.90 Estim Creat Clear Calc 92 Estimated
[2020-02-09 14:00] VITALS: BP 112/75; PULSE 78; RESP 18; TEMP 37; O2SAT 100
[2020-02-09] MEDS: MIRTAZAPINE 15 MG TABLET PO (21:19)
[2020-02-09 22:00] VITALS: BP 142/92; PULSE 85; RESP 18; TEMP 37.2; O2SAT 100
[2020-02-10] MEDS: methocarbamoL 750 MG TABLET PO ×2 (02:07→09:23)
[2020-02-10 06:00] VITALS: BP 128/90; PULSE 73; RESP 18; TEMP 36.8; O2SAT 100
[2020-02-10] MEDS: LIDOCAINE 5% PATCH 1 PATCH TRANSDERM (09:23)
[2020-02-10] MEDS: NICOTINE (*PBKC) 14 MG PATCH 1 PATCH TRANSDERM (09:23)
[2020-02-10] MEDS: SENNOSIDES 8.6 MG TABLET PO (09:23)
--- NOTE | 2020-02-14 10:58 | PM.DS ---
DS: Admitting Diagnosis Admitting Diagnosis Admitting Diagnosis: Disease of spinal cord, unspecified DS: Discharge Diagnosis Discharge Diagnosis (1) Sexual dysfunction: Code(s): R37 - Sexual dysfunction, unspecified Status: Acute (2) Bladder dysfunction: Code(s): N31.9 - Neuromuscular dysfunction of bladder, unspecified Status: Acute (3) S/P lumbar fusion: Code(s): Z98.1 - Arthrodesis status Status: Acute (4) S/P cervical spinal fusion: Code(s): Z98.1 - Arthrodesis status Status: Acute (5) Cervical radiculopathy: Code(s): M54.12 - Radiculopathy, cervical region Status: Acute (6) Cervical spondylosis: Code(s): M47.812 - Spondylosis without myelopathy or radiculopathy, cervical region Status: Acute (7) Cervical myelopathy: Code(s): G95.9 - Disease of spinal cord, unspecified Status: Acute DS: Summary Hospital Course Reason for hospitalization: this 50-year-old gentleman was admitted because of cervical myelopathy/radiculopathy superimposed on the previous lumbar surgery as documented in my history and physical examination we consulted urologist for his bladder and sexual dysfunction and going to follow him as an outpatient during the course of hospitalization he received physical therapy of compression therapy and gait training and the medical management of his underlying medical issues he was able to achieve the following independent measures Hospital Course: eating independent oral hygiene independent toileting independent bathing supervision upper body dressing independent lower body dressing independent footwear is independent rolling in bed independent sitting to lying independent lying to sitting independent [id number] independent chair transfers independent toilet transfers independent car transfers independent walking 10 feet independent walking 50 feet with to turns independent walking 150 feet independent walking 10 feet uneven surfaces supervision carb are set up independent 4 steps dependent total steps supervision picking up objects independent wheelchair 50 feet independent and wheelchair 150 feet independent he was sent home with home health to follow no falls were recorded please refer to the discharge instructions on the discharge medication reconciliation Time Spent with Patient Time attestation: Total time spent providing and/or coordinating discharge services: Discharge Plan Discharge Attending physician on discharge: Guanakito Christianson Consulting providers: [facility] Discharging Clinician: Ali,Guanakito S. Anticipated Discharge Date/Time: 02/10/20 13:44 Patient Disposition: Home Health Service Activity: may shower and no driving Diet: as tolerated Wound Care Instructions: follow printed instructions Discharge Instructions: Per Care Coordination: [facility] has been arranged to follow for RN and PT/OT eval and treat. [facility] Home Health can be contacted at . Nursing please fax discharge paperwork to [phone]. patient to follow up with the treating surgeon primary care physician and also with the urologist and prevent the fall Patient Instructions: Antibiotic Form, How to Stop Smoking (DC) Stand Alone Forms: General Discharge Information Follow-up/Referrals: Jim Vidal MD [facility] [Other] (Follow up after discharge from Rehab. Call for appointment.) [facility] [Other] (Follow up with your PCP in 2 weeks.) Discharge Medications: New lidocaine [Lidoderm] 5 % Adhesive Patch,Medicated 1 patch transdermal DAILY Qty: 15 RF: 0 nicotine 14 mg/24 hr Patch 24 Hour 1 patch transdermal QAM Qty: 14 RF: 0 Continued sennosides 8.6 mg Tablet 8.6 mg PO BID RF: 0 olanzapine 2.5 mg Tablet 2.5 mg PO DAILY Qty: 30 RF: 0 hydrocodone-acetaminophen 10-325 mg Tablet 1 tablet PO Q4H PRN (Reason: Pain) Qty: 45 RF: 0 methocarbamol 75
== END 2020-02-10 13:00 | disposition home health service (06) | DRG 560 ==
PROVIDERS: Admitting Provider Psychiatry & Neurology Neurology; PCP Internal Medicine; Visit Provider Psychiatry & Neurology Neurology
DX: Z47.89 Encounter for other orthopedic aftercare (principal); G95.9 Disease of spinal cord, unspecified; M47.22 Other spondylosis with radiculopathy, cervical region; M48.061 Spinal stenosis, lumbar region without neurogenic claudication; N31.9 Neuromuscular dysfunction of bladder, unspecified; F17.210 Nicotine dependence, cigarettes, uncomplicated; R37 Sexual dysfunction, unspecified; R26.9 Unspecified abnormalities of gait and mobility; R29.6 Repeated falls; Z98.1 Arthrodesis status
CPT/HCPCS: 36415; 80048; 85025; 97110; 97116; 97162; 97166; 97530; 97535; A9270

== ENCOUNTER 2025-01-02 00:54 | Day surgery (SDC) | payer OTHER, SELFPAY ==
[2024-11-22 10:48] VITALS: BMI 27.1
--- NOTE | 2024-12-19 14:45 | PC.NURSE ---
PT'S PAT CALL COMPLETED 11/22/24, PT RESCHEDULED PROCEDURE DATE, PT CALLED TODAY AND STATES NO NEW INFORMATION OR MEDICAL HISTORY, PT STATES PAT CALL FROM 11/22/24 IS STILL CORRECT, PT UPDATED ON NEW DATE AND TIME FOR EGD/COLONOSCOPY, STATES UNDERSTANDING, PT ALSO STATES UNDERSTANDING OF ALL PREP INSTRUCTIONS. INSTRUCTED PT TO CALL IF ANY FURTHER QUESTIONS.
--- OUTSIDE RECORDS SUMMARY | 2025-01-02 00:56 | XMS_ITS | Clinical Summary ---
Author Organization [facility] Address [facility] [place] [address] Care Team Providers Care Poker In Name Role Phone Linda Ruffin MD Primary Care Provider Allergies Active Allergy Reactions Criticality Noted Date Comments Ciprofloxacin Shortness of Breath High 01/10/2021 Levofloxacin Shortness of Breath High 01/10/2021 Medications QUEtiapine (SEROQUEL) 25 MG tabletIndications:P sychophysiological insomnia Take 1 tablet (25 mg total) by mouth nightly at bedtime. 30 tablet 1 5 Active pregabalin (LYRICA) 50 MG capsuleIndications: Bilateral finger numbness Take 1 capsule (50 mg total) by mouth 2 (two) times daily. 180 capsule 1 5 Active ondansetron (ZOFRAN-ODT) 4 MG disintegrating tablet DISSOLVE 1 TABLET IN MOUTH EVERY 8 HOURS 5 Active tetracycline (SUMYCIN) 500 MG capsule TAKE 1 CAPSULE BY MOUTH 4 TIMES A DAY FOR 14 DAY 5 Active albuterol sulfate HFA 108 (90 Base) MCG/ACT inhalerIndications: Wheezing INHALE 2 PUFFS INTO THE LUNGS EVERY 6 HOURS NEEDED FOR WHEEZE 18 g 1 5 Active famotidine (PEPCID) 20 MG tabletIndications:B loated abdomen TAKE 1 TABLET BY MOUTH 2 TIMES DAILY NEEDED FOR HEARTBURN. 60 tablet 1 5 Active pregabalin (LYRICA) 25 MG capsule Take 1 capsule (25 mg total) by mouth 3 (three) times daily. 5 Active MAVYRET 100-40 MG tablet 5 Active pregabalin (LYRICA) 75 MG capsule 5 Active QUEtiapine (SEROQUEL) 100 MG tablet 5 Active QUEtiapine (SEROQUEL) 50 MG tablet 5 Active Active Problems Problem Noted Date Diagnosed Date Patellofemoral instability of right knee with pa in 09/05/2024 Encounter for screening colonoscopy 06/04/2023 Overview (06/04/2023): Added automatically from request for surgery [id number] MDD (major depressive disord er), recurrent, severe, with psychosis ([facility]) 08/16/2021 Gait abnormality 08/06/2021 Erectile dysfunction due to diseases classified elsewhere 05/01/2020 Alcohol dependence with alco hol-induced mood disorder ([facility]) 03/22/2020 Mood disorder 03/08/2020 BMI 29.0-29.9,adult 02/14/2019 Pseudoarthrosis of lumbar spine 06/18/2015 Resolved Problems Problem Noted Date Diagnosed Date Resolved Date Upper respiratory tract infe ction, unspecified type 08/28/2021 10/28/2021 Major depressive disorder 08/07/2021 Depression 08/01/2021 10/28/2021 Acute pain of right knee 05/01/202007/2021 Reactive depression 07/17/2019 07/08/20 22 Inguinal bulge 03/29/2019 04/04/2023 Moderate episode of recurren t major depressive disorder 02/14/2019 10/28/2021 Right inguinal pain 02/14/2019 04/04/20 23 Health care maintenance 02/14/2019 10/11/2020 Cervical myelopathy ([facility]) 06/18/2015 03/08/2020 Encounters Date Type Department Care Team Description 01/01/2025 Travel 11/24/2024 2:46 PM CDT - 11/24/2024 11:59 PM CDT Hospital Encounter [facility] Therapy [address] [place], [place] [id number] Linda Ruffin MD Emerick, Noah D, PT Shoulder Pain Discharge Disposition: Home or Self Care (Routine Discharge) 11/24/2024 Travel 11/22/2024 Scan HEALTH INFO SRVCS Scanned, Doc [facility] 10/20/2024 9:00 AM ACCOUNTS PAYABLE ADMINISTRATOR Office Visit [facility] Family & Internal [address] [id number] Linda Ruffin MD Congestion (Acute productive cough and chest congestion x 1 and half weeks and cough remaining at night ) 10/20/2024 Travel 10/12/2024 8:56 AM ACCOUNTS PAYABLE ADMINISTRATOR - 10/12/2024 11:59 PM ACCOUNTS PAYABLE ADMINISTRATOR Hospital Encounter [facility] Laboratory [address] [place] [place] [address] Tamika Jones, MANAGER TRAINING AND DEVELOPMENT-BC Discharge Disposition: Home or Self Care (Routine Discharge) 10/12/2024 Orders Only [facility] Laboratory [address] [place] [address] Tamika Jones, MANAGER TRAINING AND DEVELOPMENT-BC 10/11/2024 Orders Only [facility] Family Internal [address] [phone] Linda Ruffin MD 10/10/2024 2:44 PM ACCOUNTS PAYABLE ADMINISTRATOR - 10/10/2024 11:59 PM ACCOUNTS PAYABLE ADMINISTRATOR Hospital Encounter [facility] Laboratory [address] [place] [address] Tamika Jones, MANAGER TRAINING AND DEVELOPMENT-BC Discharge Disposition: Home or Self Care (Routine Discharge) 10/10/2024 Orders Only [facility] Laboratory [address] [place] [address] Tamika Jones, MANAGER TRAINING AND DEVELOPMENT-BC 10/10/2024 Travel 10/06/2024 2:05 PM ACCOUNTS PAYABLE ADMINISTRATOR - 10/06/2024 11:59 PM ACCOUNTS PAYABLE ADMINISTRATOR Hospital Encounter [facility] Diagnostic Imaging [address] [place] [address] Linda Ruffin MD Discharge Disposition: Home or Self Care (Routine Discharge) 10/06/2024 Orders Only [facility] Medical Group Family & Internal Medicine [facility] [id number] [place] [phone] Linda Ruffin MD 10/06/2024 Travel from Last 3 Months Immunizations Immunization Administration Dates Next Due Fluzone Adult - >Age 3 (Pref illed Syringe) 07/20/2023(Deferred: Patient Refused) Influenza (Generic) 08/11/2015,05/16/2014,2013 Influenza Adult (Generic) 08/11/2015,05/16/2014, 08/23/2013 PFIZER COVID-19 (ORIGINAL FO RMULATION, PURPLE CAP) mRNA, LNP-S, PF, 30 MCG/0.3 ML DOSE 09/29/2022 Pneumococcal (Pneumovax 23) 08/11/2015 Tdap (Adacel) 08/23/2009 Tdap (Generic) 03/03/2024,08/23/2009 Family History Medical History Relation Comments unknown Father Asthma Mother hiv Mother Relation Status Comments Father Mother Alive Social History Tobacco Use Types Packs/Day Years Used Date Smoking Tobacco: Former Cigarettes 0.3 10 Smokeless Tobacco: Never Tobacco Cessation:Counseling Given: No Alcohol Use Standard Drinks/Week Comments Not Currently 0 (1 standard drink = 0.6 oz pure alcohol) Patient stated that they are no longer drinking. PHQ-2 Answer Date Recorded Patient Health Questionnaire-2 Score 1 10/20/2024 Education Answer Date Recorded What is the highest level of school you have completed or the highest degree you have received? Associate degree: academic program 02/14/2019 Sex and Gender Information Value Date Recorded Sex Assigned at Male 08/07/2021 10:20 PM ACCOUNTS PAYABLE ADMINISTRATOR Legal Sex Male 6:12 PM ACCOUNTS PAYABLE ADMINISTRATOR Gender Identity Male 08/07/2021 10:20 PM ACCOUNTS PAYABLE ADMINISTRATOR Sexual Orientation Straight 08/07/2021 10 :20 PM ACCOUNTS PAYABLE ADMINISTRATOR Last Filed Vital Signs Vital Sign Reading Time Taken Comments Blood Pressure 122/63 10/20/2024 9:11 AM ACCOUNTS PAYABLE ADMINISTRATOR Pulse 88 10/20/2024 9:11 AM ACCOUNTS PAYABLE ADMINISTRATOR Temperature 36.6 C (97.9 F) 10/20/2024 9:11 AM ACCOUNTS PAYABLE ADMINISTRATOR Respiratory Rate 16 10/20/2024 9:11 AM ACCOUNTS PAYABLE ADMINISTRATOR Oxygen Saturation 99% 10/20/2024 9:11 AM ACCOUNTS PAYABLE ADMINISTRATOR Inhaled Oxygen Concentration - - Weight 86.7 kg (191 lb 3.2 oz) 10/20/2024 9:11 A M ACCOUNTS PAYABLE ADMINISTRATOR Height 182.9 cm (6') 10/20/2024 9:11 AM ACCOUNTS PAYABLE ADMINISTRATOR Body Mass Index 25.93 10/20/2024 9:11 AM ACCOUNTS PAYABLE ADMINISTRATOR Plan of Treatment Upcoming Encounters Date Type Department Care Team (Late st Contact Info) Description 02/12/2025 2:00 PM CDT Office Visit [facility] Medical Group Orthopedic Surgery [facility] [address] [place] [address] [place] [address] [place] [address] Health Maintenance Due Date Last Done Comments Colorectal Cancer Screening Colonoscopy (10 Years) 1968 Hepatitis B Vaccines (1 of 3 - 19+ 3-dose series) 01/17/1987 Pneumococcal Vaccine: 50+ Years (2 of 2 - PCV) 08/11/2016 08/11/2015 Zoster Vaccines (1 of 2) 01/17/2018 Annual Physical 03/09/2024 03/09/2023 COVID-19 Vaccine (2 - season) 2024 09/29/2022 DTaP, Tdap and Td Vaccines (4 - Td or Tdap) 03/03/2034 03/03/2024, 08/23/2009, 08/23/2009 Hepatitis C Completed 10/10/2024, 09/23, 09/05/2024, Additional history exists PHQ-2 (Physician [place]) Completed 10/20/2024 Meningococcal B Vaccine Aged Out No l onger eligible based on patient's age to complete this topic Meningococcal Vaccine Aged Out No rosa michael eligible based on patient's age to complete this topic RSV Immunizations Under 20 Months Aged Out No longer eligible based on patient's age to complete this topic Medical Devices Implanted Type Area Direct Entry Midwife Device Identifier Shelf Expiration Date Model / Serial / Lot 1.5 Va Plate [id number] Implanted:Qty: 1 on 09/15/2023 by Justin Dhaliwal DO at [facility] Right: Finger / [id number] / 1.5 Cortex Screw 20 Mm Implanted:Qty: 1 on 09/15/2023 by Justin Dhaliawl, DO at [facility] Right: Finger [id number] / / 1.5 Va Locking Screw 14 Mm Implanted:Qty: 1 on 09/15/2023 by Justin Dhaliwal, DO at [facility] Right: Finger [id number] / / 1.5 Cortex Screw 18 Mm Implanted:Qty: 1 on 09/15/2023 by Justin Dhaliwal, DO at [facility] Right: Finger [id number] / / 1.5 Cortex Screw 11 Mm Implanted:Qty: 1 on 09/15/2023 by Justin Dhaliwal, DO at [facility] Right: Finger [id number] / / 1.5 Cortex Screw 12 Mm Implanted:Qty: 1 on 09/15/2023 by Justin Dhaliwal, DO at [facility] Right: Finger [id number] / / 1.5 Cortex Screw 14 Mm Implanted:Qty: 1 on 09/15/2023 by Justin Dhaliwal, DO at [facility] Right: Finger [id number] / / Procedures Procedure Name Priority Date/Time Associated Diagnosis Comments HELICOBACTER PYLORI, STOOL, EIA Routine 10/12/2024 8:30 AM ACCOUNTS PAYABLE ADMINISTRATOR Blood in stool BASIC METABOLIC PANEL Routine 10/10/2024 2:50 PM ACCOUNTS PAYABLE ADMINISTRATOR Blood in stool Unspecified viral hepatitis C without hepatic coma HEPATITIS B CORE AB IGM Routine 10/10/2024 2:50 PM ACCOUNTS PAYABLE ADMINISTRATOR Blood in stool Unspecified viral hepatitis C without hepatic coma HEPATITIS B CORE ANTIBODY Routine 10/10/2024 2:50 PM ACCOUNTS PAYABLE ADMINISTRATOR Blood in stool Unspecified viral hepatitis C without hepatic coma HEPATIC FUNCTION PANEL Routine 10/10/2024 2:50 PM ACCOUNTS PAYABLE ADMINISTRATOR Blood in stool Unspecified viral hepatitis C without hepatic coma HEP C VIRAL RNA GENOTYPE, LIPA Routine 10/10/2024 2:50 PM ACCOUNTS PAYABLE ADMINISTRATOR Blood in stool Unspecified viral hepatitis C without hepatic coma CBC W/DIFF AUTOMATED Routine 10/10/2024 2:50 PM ACCOUNTS PAYABLE ADMINISTRATOR Blood in stool Unspecified viral hepatitis C without hepatic coma XR SHOULDER RT MIN 2V After Office Visit 10/06/2024 2:33 PM ACCOUNTS PAYABLE ADMINISTRATOR Chronic right shoulder pain XR KNEE RT 3V After Office Visit 10/06/2024 2:33 PM ACCOUNTS PAYABLE ADMINISTRATOR Patellofemoral instability of right knee with pain from Last 3 Months Results * (ABNORMAL) HELICOBACTER PYLORI, STOOL, EIA (10/12/2024 8:30 AM ACCOUNTS PAYABLE ADMINISTRATOR) Pathologist [facility] H. PYLORI AG (STOOL) DETECTED( A) Not Detected 10/16/2024 2:46 PM ACCOUNTS PAYABLE ADMINISTRATOR [employer] LOUISE INFANTE Comment: Test Performed by [facility], [email or web address] [facility], [address] [place] [address] Jorge Houston M.D., Ph.D., Director of Laboratories , [facility] [id number] STOOL SPECIMEN / Unknown 10/12/2024 8:30 AM ACCOUNTS PAYABLE ADMINISTRATOR Tamika Jones [facility] MICROBIOLOGY - GENERAL ORDERABLES Final Result [employer] VIOLA [address] [place] [address] , * HEP C VIRAL RNA GENOTYPE, LIPA (10/10/2024 2:50 PM ACCOUNTS PAYABLE ADMINISTRATOR) Pathologist [facility] HEPATITIS C VIRAL RNA GENOTYPE 1b 10/14/2024 1:43 PM ACCOUNTS PAYABLE ADMINISTRATOR [employer] MILKA JONES Comment: The method used in this test is RT-PCR and reverse hybridization (Line Probe) of the 5' UTR and core region of the HCV genome. The analytical performance characteristics of this assay have been determined by [facility] [place], [place]. The modifications have not been cleared or approved by the FDA. This assay has been validated pursuant to the CLIA regulations and is used for clinical purposes. For additional information, please refer to http://education.[employer]/faq/HCVGenotyping (This link is being provided for informational/ educational purposes only.) Test Performed by [facility], [email or web address] [facility], [address] [place] [address] Jorge Houston M.D., Ph.D., Director of Laboratories , CLIA [id number] 10/10/2024 2:50 PM ACCOUNTS PAYABLE ADMINISTRATOR Tamika Jones [facility] Final R esult [employer] [address] , * (ABNORMAL) BASIC METABOLIC PANEL (10/10/2024 2:50 PM ACCOUNTS PAYABLE ADMINISTRATOR) GLUCOSE 104(H) 70 - 99 MG/DL 10/10/2024 5:22 PM ACCOUNTS PAYABLE ADMINISTRATOR [facility] BUN 12 7 - 18 MG/DL 10/10/2024 5:22 PM ACCOUNTS PAYABLE ADMINISTRATOR [facility] CREATININE S/P/B 1.08 0.50 - 1.20 MG/DL 10/10/2024 5:22 PM ACCOUNTS PAYABLE ADMINISTRATOR [facility] SODIUM S/P/B 143 136 - 145 MMOL/L 10/10/2024 5:22 PM ACCOUNTS PAYABLE ADMINISTRATOR [facility] POTASSIUM S/P/B 3.8 3.5 - 5.1 MMOL/L 10/10/2024 5:22 PM ACCOUNTS PAYABLE ADMINISTRATOR [facility] CHLORIDE S/P/B 106 100 - 108 MMOL/L 10/10/2024 5:22 PM ACCOUNTS PAYABLE ADMINISTRATOR [facility] CO2 22.6 21.0 - 32.0 MMOL/L 10/10/2024 5:22 PM [facility] CALCIUM S/P/B 8.8 8.5 - 10.1 MG/DL 10/10/2024 5:22 PM [facility] ANION GAP 14.4 5.0 - 15.0 MMOL/L 10/10/2024 5:22 PM [facility] BUN CREATININE RATIO 11.1 6 - 26 10/10/2024 5:22 PM [facility] GFR ESTIMATE 81(L) >90 ML/MIN/1.7 3 M2 10/10/2024 5:22 PM [facility] Comment: NOTE: eGFR is not calculated for patients <18 years of age. This is an estimated GFR calculation using the new CKD EPI creatinine equation without race and so does not require a correction factor for race. This estimated GFR should not be used for calculating drug doses. 10/10/2024 2:50 PM ACCOUNTS PAYABLE ADMINISTRATOR Tamika Jones [facility] Final R esult [facility] [address] [place] [address], * (ABNORMAL) HEPATIC FUNCTION PANEL (10/10/2024 2:50 PM ACCOUNTS PAYABLE ADMINISTRATOR) TOTAL PROTEIN S/P/B 7.8 6.4 - 8.2 G/DL 10/10/2024 5:22 PM [facility] ALBUMIN S/P/B 3.7 3.4 - 5.0 G/DL 10/10/2024 5:22 PM [facility] BILIRUBIN TOTAL S/P/B 0.3 0.2 - 1.2 MG/DL 10/10/2024 5:22 PM [facility] Comment: THIS ASSAY IS NOT RECOMMENDED FOR PATIENTS UNDERGOING TREATMENT WITH ELTROMBOPAG DUE TO THE POTENTIAL FOR FALSELY ELEVATED RESULTS. BILIRUBIN DIRECT S/P/B 0.1 0.0 - 0.2 MG/DL 10/10/2024 5:22 PM ACCOUNTS PAYABLE ADMINISTRATOR [facility] BILIRUBIN INDIRECT S/P/B 0.2 0.0 - 0.9 MG/DL 10/10/2024 5:22 PM ACCOUNTS PAYABLE ADMINISTRATOR [facility] ALKALINE PHOSPHATASE S/P/B 52 50 - 136 U/L 10/10/2024 5:22 PM ACCOUNTS PAYABLE ADMINISTRATOR [facility] AST 22 15 - 37 U/L 10/10/2024 5:22 PM ACCOUNTS PAYABLE ADMINISTRATOR [facility] ALT 29 16 - 60 U/L 10/10/2024 5:22 PM ACCOUNTS PAYABLE ADMINISTRATOR [facility] A/G RATIO 0.9(L) 1.0 - 2.5 RATIO 10/10/2024 5:22 PM ACCOUNTS PAYABLE ADMINISTRATOR [facility] 10/10/2024 2:50 PM ACCOUNTS PAYABLE ADMINISTRATOR [facility] Final R esult [facility] [address] [place] [address], [place] * HEPATITIS B CORE ANTIBODY (10/10/2024 2:50 PM ACCOUNTS PAYABLE ADMINISTRATOR) HEP B CORE TOTAL AB NON-REACTI VE NON-REACTI VE 10/10/2024 8:08 PM ACCOUNTS PAYABLE ADMINISTRATOR [facility] 10/10/2024 2:50 PM ACCOUNTS PAYABLE ADMINISTRATOR [facility] Final R esult [facility] [address] [place] [address], [place] [phone] * HEPATITIS B CORE AB IGM (10/10/2024 2:50 PM ACCOUNTS PAYABLE ADMINISTRATOR) HEP B CORE IGM NON-REACTI VE NON-REACTI VE 10/10/2024 8:07 PM ACCOUNTS PAYABLE ADMINISTRATOR [facility] 10/10/2024 2:50 PM ACCOUNTS PAYABLE ADMINISTRATOR Tamika Jones [facility] Final R adams [facility] [address] [place] [address], * (ABNORMAL) CBC W/DIFF AUTOMATED (10/10/2024 2:50 PM ACCOUNTS PAYABLE ADMINISTRATOR) WBC 8.88 4.50 - 11.00 x10'3/uL 10/10/2024 2:59 PM ACCOUNTS PAYABLE ADMINISTRATOR [facility] RBC 5.36 4.50 - 5.90 x10'6/uL 10/10/2024 2:59 PM ACCOUNTS PAYABLE ADMINISTRATOR [facility] HGB 13.1(L) 14.0 - 18.0 G/DL 10/10/2024 2:59 PM ACCOUNTS PAYABLE ADMINISTRATOR [facility] HCT 40.6(L) 43.0 - 54.0 % 10/10/2024 2:59 PM ACCOUNTS PAYABLE ADMINISTRATOR [facility] MCV 75.7(L) 80.0 - 100.0 FL 10/10/2024 2:59 PM ACCOUNTS PAYABLE ADMINISTRATOR [facility] MCH 24.4(L) 26.0 - 34.0 PG 10/10/2024 2:59 PM ACCOUNTS PAYABLE ADMINISTRATOR [facility] MCHC 32.3 31.0 - 37.0 G/DL 10/10/2024 2:59 PM ACCOUNTS PAYABLE ADMINISTRATOR [facility] RDW 14.4 11.6 - 14.8 % 10/10/2024 2:59 PM ACCOUNTS PAYABLE ADMINISTRATOR [facility] PLT 390 130 - 400 x10'3/uL 10/10/2024 2:59 PM ACCOUNTS PAYABLE ADMINISTRATOR [facility] MPV 9.8 7.0 - 12.0 FL 10/10/2024 2:59 PM ACCOUNTS PAYABLE ADMINISTRATOR [facility] CBC COMMENT AUTOMATED RBC MORPHOLOGY AND PLATELET EVALUATION NORMAL 10/10/2024 2:59 PM ACCOUNTS PAYABLE ADMINISTRATOR [facility] NEUTROPHILS % 48.8 40.0 - 74.0 % 10/10/2024 2:59 PM [facility] LYMPHOCYTES % 42.6 14.0 - 46.0 % 10/10/2024 2:59 PM ACCOUNTS PAYABLE ADMINISTRATOR [facility] MONOCYTES % 7.5 4.0 - 13.0 % 10/10/2024 2:59 PM [facility] EOSINOPHILS 0.3 0.0 - 7.0 % 10/10/2024 2:59 PM [facility] BASOPHILS 0.5 0.0 - 3.0 % 10/10/2024 2:59 PM ACCOUNTS PAYABLE ADMINISTRATOR [facility] IMMATURE GRANS % 0.3 0.0 - 0.43 % 10/10/2024 2:59 PM ACCOUNTS PAYABLE ADMINISTRATOR [facility] NRBC % 0.0 % 10/10/2024 2:59 PM ACCOUNTS PAYABLE ADMINISTRATOR [facility] ABS. NEUTROPHILS TOTAL 4.33 1.69 - 7.81 x10'3/uL 10/10/2024 2:59 PM ACCOUNTS PAYABLE ADMINISTRATOR [facility] ABS. LYMPHOCYTES 3.78 0.21 - 5.42 x10'3/uL 10/10/2024 2:59 PM ACCOUNTS PAYABLE ADMINISTRATOR [facility] ABS. MONOCYTES 0.67 0.04 - 1.37 x10'3/uL 10/10/2024 2:59 PM ACCOUNTS PAYABLE ADMINISTRATOR [facility] ABS. EOSINOPHILS 0.03 0.00 - 0.68 x10'3/uL 10/10/2024 2:59 PM ACCOUNTS PAYABLE ADMINISTRATOR [facility] ABS. BASOPHILS 0.04 0.00 - 0.08 x10'3/uL 10/10/2024 2:59 PM ACCOUNTS PAYABLE ADMINISTRATOR [facility] ABS. IMMATURE GRANULOCYTES 0.03 0.00 - 0.06 x10'3/uL 10/10/2024 2:59 PM ACCOUNTS PAYABLE ADMINISTRATOR [facility] ABS. NUCLEATED RBC'S 0.00 0.00 - 0.01 x10'3/uL 10/10/2024 2:59 PM ACCOUNTS PAYABLE ADMINISTRATOR [facility] 10/10/2024 2:50 PM ACCOUNTS PAYABLE ADMINISTRATOR us Tamika Jones MANAGER TRAINING AND DEVELOPMENT- LABORATORY Final R esult [address] [place] [address], [place] * XR SHOULDER RT MIN 2V (10/06/2024 2:33 PM ACCOUNTS PAYABLE ADMINISTRATOR) Anatomical Region Laterality Modality Shoulder Computed Tomogra phy 10/06/2024 2:40 PM ACCOUNTS PAYABLE ADMINISTRATOR Impressions 10/06/2024 2:40 PM ACCOUNTS PAYABLE ADMINISTRATOR IMPRESSION: No acute findings Ordered By: LINDA RUFFIN Interpreted By: Robert Bedolla MD, 10/06/2024 2:40 PM Narrative 10/06/2024 2:40 PM ACCOUNTS PAYABLE ADMINISTRATOR [address] [place] [address] 3 VIEWS OF THE RIGHT SHOULDER CLINICAL HISTORY: Pain COMPARISON: None 3 views of the right shoulder demonstrate the bony elements to be intact. There is no evidence of fracture or dislocation. The surrounding soft tissues appear normal. Procedure Note Robert Bedolla MD - 10/06/[address] [place] [address] 3 VIEWS OF THE RIGHT SHOULDER CLINICAL HISTORY: Pain COMPARISON: None 3 views of the right shoulder demonstrate the bony elements to be intact.There is no evidence of fracture or dislocation. The surrounding softtissues appear normal. IMPRESSION: No acute findings Ordered By: LINDA RUFFIN Interpreted By: Robert Bedolla MD, 10/06/2024 2:40 PM Linda Ruffin MD GENERAL IMAGING Final Resul t * XR KNEE RT 3V (10/06/2024 2:33 PM ACCOUNTS PAYABLE ADMINISTRATOR) Anatomical Region Laterality Modality Knee Computed Tomogra phy 10/06/2024 2:38 PM ACCOUNTS PAYABLE ADMINISTRATOR Impressions 10/06/2024 2:38 PM ACCOUNTS PAYABLE ADMINISTRATOR IMPRESSION: No acute findings Ordered By: LINDA RUFFIN Interpreted By: Robert Bedolla MD, 10/06/2024 2:38 PM Narrative 10/06/2024 2:38 PM ACCOUNTS PAYABLE ADMINISTRATOR [address] [place] [address] 3 VIEWS OF THE RIGHT KNEE Clinical History: Pain Comparison: None 3 views of the right knee demonstrate the bony elements to be intact. There is no evidence of fracture or dislocation. The surrounding soft tissues appear normal. Procedure Note Robert Bedolla MD - 10/06/[address] [place] [address] 3 VIEWS OF THE RIGHT KNEE Clinical History: Pain Comparison: None 3 views of the right knee demonstrate the bony elements to be intact.There is no evidence of fracture or dislocation. The surrounding softtissues appear normal. IMPRESSION: No acute findings Ordered By: LINDA RUFFIN Interpreted By: Robert Bedolla MD, 10/06/2024 2:38 PM Linda Ruffin MD GENERAL IMAGING Final Resul t from Last 3 Months Insurance Advance Directives * Full Code (Latest Code Status on File) Date Activated Date Inactivated Comments 08/16/2021 3:14 PM 09/25/2021 3:32 PM * Full Code Date Activated Date Inactivated Comments 08/07/2021 11:12 PM 08/12/2021 3:41 PM * Full Code Date Activated Date Inactivated Comments 08/06/2021 9:32 AM 08/07/2021 9:35 PM * Full Code Date Activated Date Inactivated Comments 08/01/2021 3:51 PM 08/05/2021 8:05 PM * Full Code Date Activated Date Inactivated Comments 11/08/2019 11:13 AM 07/31/2021 11:27 AM Care Teams Poker In Relationship Specialty [place] [id number] [place] [address] PCP - General INTERNAL MEDICINE 09/04/24
--- OUTSIDE RECORDS SUMMARY | 2025-01-02 00:56 | XMS_ITS | Encounter Summary ---
Author Organization [facility] Address [address] [place] [address] Care Team Providers Care Sandwich And Drink Cart Operator Name Role Phone Herminia Roach MD Primary Care Provider [phone] Encounter Details Date Type Department Care Team (Latest Contact Info) Description 01/01/2025 Travel Social History Tobacco Use Types Packs/Day Years Used Date Smoking Tobacco: Former Cigarettes 0.3 10 Smokeless Tobacco: Never Alcohol Use Standard Drinks/Week Comments Not Currently [...] Sex Assigned at Male 08/07/2021 10:20 PM BOTTLE AND GLASS INSPECTOR Legal Sex Male 6:12 PM BOTTLE AND GLASS INSPECTOR Gender Identity Male 08/07/2021 10:20 PM BOTTLE AND GLASS INSPECTOR Sexual Orientation Straight 08/07/2021 10 :20 PM BOTTLE AND GLASS INSPECTOR documented as of this encounter Plan of Treatment Upcoming Encounters Date Type Department Care Team (Late st Contact Info) Description 02/12/2025 2:00 PM CDT Office Visit [facility] [address] [address] [place] [address] [place] [address] [place] [address] documented as of this encounter Visit Diagnoses Not on filedocumented in this encounter Additional Health Concerns Assessment Noted Time PHQ-9 Depression Total Score: 5 10/20/19 25 9:17 AM BOTTLE AND GLASS INSPECTOR documented as of this encounter Care Teams Sandwich And Drink Cart Operator Relationship Specialty [place] [address] [place] [address] PCP - General INTERNAL MEDICINE 09/04/24 documented as of this encounter
--- OUTSIDE RECORDS SUMMARY | 2025-01-02 00:56 | XMS_ITS | Clinical Summary ---
Author Organization [facility] Address [address] [place] [address] Care Team Providers Care New Accounts Representative Name Role Phone Whit Mendez PA-C Primary Care Provider [phone] Allergies No known active allergies Medications acetaminophen (TYLENOL) 325 MG tablet Take 2 tablets (650 mg total) by mouth every 6 (six) hours. 4 Active gabapentin (NEURONTIN) 300 MG capsule Take 2 capsules (600 mg total) by mouth 3 (three) times a day. 180 capsule 4 03/19/20 25 Active QUEtiapine (SEROquel) 100 MG tabletIndicatio ns:Insomnia Take 1 tablet (100 mg total) by mouth nightly Indications: Trouble Sleeping. 30 tablet 4 03/19/20 25 Active mupirocin (BACTROBAN) 2 % ointmentIndicat ions:Milia Apply topically 3 (three) times a day Indications: Malone. 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 No 03/12/2024 Social Connection and Isolat ion Panel [NHANES] Answer Date Recorded In a typical week, how many times do you talk on the phone with family, friends, or neighbors? More than three times a week 03/12/2024 How often do you get togethe r with friends or relatives? Once a week 03/12/2024 How often do you attend chur ch or buddhist services? 1 to 4 times per year 03/12/2024 Do you belong to any clubs o r organizations such as pentecostal groups, unions, fraternal or athletic groups, or school groups? No 03/12/2024 How often do you attend meet ings of the clubs or organizations you belong to? Never 03/12/2024 Are you , , di vorced, , never , or living with a partner? Living with partner 03/12/2024 AUDIT-C Answer Date Recorded Q1: How often do you have a drink containing alcohol? Monthly or less 03/11/2024 Q2: How many drinks containi ng alcohol do you have on a typical day when you are drinking? Patient does not drink Q3: How often do you have si x or more drinks on one occasion? Never 03/11/2024 Overall Financial Resource Strain (CARDIA) Answe r Date Recorded How hard is it for you to pa y for the very basics like food, housing, medical care, and heating? Somewhat hard 03/12/2024 [facility] - Occupational Stress Questionnaire Answer Date Recorded Do you feel stress - tense, restless, nervous, or anxious, or unable to sleep at night because your mind is troubled all the time - these days? Only a little 03/20/2024 Hunger Vital Sign Answer Date Recorded Within the past 12 months, y ou worried that your food would run out before you got the money to buy more. Never true 03/12/20 24 Within the past 12 months, t he food you bought just didn't last and you didn't have money to get more. Never true 03/12/2024 Housing Stability Vital Sign Answer Bhaskar e Recorded In the last 12 months, was t here a time when you were not able to pay the mortgage or rent on time? No 03/12/2024 In the past 12 months, how m any times have you moved where you were living? 0 03/12/2024 At any time in the past 12 m [facility], were you homeless or living in a intermediate (including now)? No 03/12/2024 Domestic Abuse Assessment Answer Date R ecorded Do you feel safe in your relationships at home? Yes 03/11/2024 Physical Abuse Denies 03/11/2024 HRSN Domestic Abuse - Type of Abuse Not on file 03/11/2024 HRSN Domestic Abuse - Time Frame Not on file 03/11/2024 HRSN Domestic Abuse - Signs and Symptoms Not on file 03/11/2024 Verbal Abuse Denies 03/11/2024 HRSN Domestic Abuse - Reported To Not on file 03/11/2024 SDOH Transportation Source Answer Da te Recorded Has lack of transportation k ept you from medical appointments or from getting medications? No 03/20/2024 Has lack of transportation k ept you from meetings, work, or from getting things needed for daily living? No 03/20/2024 HRSN Depression PHQ-2 Answer Date Recor ded Feeling down, depressed, or hopeless 0 03/20/2024 Little interest or pleasure in doing things 0 03/20/2024 Sex and Gender Information Value Date Recorded Sex Assigned at Male 03/12/2024 3:47 PM EDT Legal Sex Male 3:36 PM EDT Gender Identity Male 03/12/2024 3:47 PM EDT Sexual Orientation Straight 03/12/2024 3: 47 PM EDT Last Filed Vital Signs Vital Sign Reading Time Taken Comments Blood Pressure 126/81 03/20/2024 7:56 AM CDT Pulse 67 03/20/2024 7:56 AM CDT Temperature 36.4 C (97.6 F) 03/20/2024 7:56 AM CDT Respiratory Rate 18 03/20/2024 7:56 AM CDT Oxygen Saturation 99% 03/20/2024 7:56 AM CDT Inhaled Oxygen Concentration - - Weight 84.4 kg (186 lb) 03/11/2024 12:42 PM CDT Height 180.3 cm (5' 11 ) 03/13/2024 3:01 PM CDT Body Mass Index 25.94 03/11/2024 12:42 PM CDT Plan of Treatment Health Maintenance Due Date Last Done Comments CT Colonography 1968 Colonoscopy 1968 Colorectal Cancer Screening 1968 FIT-DNA (Cologuard) 1968 FIT 1968 FOBT 1968 Sigmoidoscopy 1968 Annual Visit Topic 01/17/1969 MMR Vaccines (1 of 1 - Standard series) 01/17/1969 Hepatitis C Screening 01/17/1986 Hepatitis B Vaccines (1 of 3 - 19+ 3-dose series) 01/17/1987 Pneumococcal Vaccine: Pediatrics (0 to 5 years) and At-Risk Patients (6 to 64 Years) (1 of 4 - PCV) 01/17/1987 PSA Test 01/17/2023 DTaP/Tdap/Td Vaccines (3 - T d or Tdap) 03/03/2034 03/03/2024, 08/23/2009 HIB Vaccines Aged Out No longer eligi ble based on patient's age to complete this topic HPV Vaccines Aged Out No longer eligi ble based on patient's age to complete this topic Hepatitis A Vaccines Aged Out No long er eligible based on patient's age to complete this topic IPV Vaccines Aged Out No longer eligi ble based on patient's age to complete this topic Meningococcal Vaccine Aged Out No rosa michael eligible based on patient's age to complete this topic Advance Directives * Full Resuscitation (Latest Code Status on File) Date Activated Date Inactivated Comments 03/11/2024 1:30 PM 03/20/2024 4:36 PM Question Answer Comments I have discussed this order with the patient or his/her surrogate and have received informed consent. Yes Care Teams New Accounts Representative Relationship Specialty Start Date End Date Whit Mendez PA-C [address] [facility] [address] [place] [id number] PCP - General Door Slinger 03/12/24
--- OUTSIDE RECORDS SUMMARY | 2025-01-02 00:57 | XMS_ITS | Clinical Summary ---
Author Organization [email or web address] Address [address] [place] [address] Care Team Providers Care Flooring Professional Name Role Phone Whit Mendez PA-C Primary Care Provider [phone] Source Comments [facility],non-owned Affiliates and Associated Physician Practices is amultiple site organization consisting of ambulatory clinics and hospital sitesin [place], [place], [place] and [place]. This disclosure is being madepursuant to the Care Everywhere program and may not contain all information available regarding this patient. Last updated 18.[email or web address] Allergies Active Allergy Reactions Criticality Noted Date Comments Ciprofloxacin Shortness of Breath High 01/10/2021 Levofloxacin Shortness of Breath High 01/10/2021 Medications * Be aware that medications may not be up to date on this document. Alwaysverify current medications with the patient. acetaminophen (Tylenol) 325 MG tablet Take 2 (two) tablets by mouth every 6 hours Maximum allowable Acetaminophen amount = 4 Grams (4000 mg) / 24 hours. 4 Active enoxaparin (Lovenox) 30 MG/0.3ML injection Inject 30 (thirty) mg subcutaneously every 12 hours 4 Active gabapentin (Neurontin) 300 MG capsule Take 2 (two) capsules by mouth 3 times daily 4 Active polyethylene glycol 3350 (Miralax) 17 g packet Take 17 (seventeen) g by mouth once daily 4 Active senna (Senokot Extra Strength) 17.2 MG Take 17.2 mg by mouth once daily 4 Active oxyCODONE, immediate release, (Roxicodone) 5 MG tabletIndicati ons:Acute Pain Take 1 (one) tablet by mouth every 4 hours as needed Reasons: Acute Pain 4 Active oxyCODONE, immediate release, (Roxicodone) 10 MG tabletIndicati ons:Cervical myelopathy (HCC) Take 1 (one) tablet by mouth every 4 hours as needed 4 Active Active Problems Problem Noted Date Diagnosed Date Acute pain 03/07/2024 Substance use 03/07/2024 Chronic depression 03/07/2024 Acute blood loss anemia 03/07/2024 Decreased mobility 03/07/2024 Hepatitis C 03/07/2024 Central cord syndrome 03/06/2024 Impaired mobility and ADLs 03/06/2024 Weakness of lower extremity, unspecified lateral ity 03/04/2024 Fall 03/03/2024 Status post lumbar spine operation 10/04/2023 Reactive depression 07/17/2019 Inguinal bulge 03/29/2019 BMI 28.0-28.9,adult 02/14/2019 Health care maintenance 02/14/2019 Moderate episode of recurrent major depressive d isorder 02/14/2019 Right inguinal pain 02/14/2019 Pseudoarthrosis of lumbar spine 06/18/2015 Lumbar radiculopathy Cervical myelopathy Encounters Date Type Department Care Team Description 11/29/2024 Travel 10/17/2024 Travel from Last 3 Months Immunizations Immunization Administration Dates Next Due INFLUENZA VACCINE 08/11/2015,05/16/2014,08/23/19 14 PNEUMOCOCCAL PPSV23 08/11/2015 TDAP (7yrs+) 03/03/2024,08/23/2009 Social History Tobacco Use Types Packs/Day Years Used Date Smoking Tobacco: Some Days Cigarettes 0.3 28 Smokeless Tobacco: Never Tobacco Cessation:Ready to Q uit: Not Asked; Counseling Given: Not Answered Comments:3-4 cig daily. last smoked yesterday at night 1999 Alcohol Use Standard Drinks/Week Comments Yes 0 (1 standard drink = 0.6 oz pur e alcohol) a few drinks AUDIT-C Answer Date Recorded Q1: How often do you have a drink containing alc ohol? Monthly or less 03/04/2024 Q2: How many drinks containi ng alcohol do you have on a typical day when you are drinking? 1 or 2 03/04/2024 Q3: How often do you have si x or more drinks on one occasion? Never 03/04/2024 Overall Financial Resource Strain (CARDIA) Answe r Date Recorded How hard is it for you to pa y for the very basics like food, housing, medical care, and heating? Not hard at all 03/04/2024 [facility] - Occupational Stress Questionnaire Answer Date Recorded Do you feel stress - tense, restless, nervous, or anxious, or unable to sleep at night because your mind is troubled all the time - these days? Not at all 03/04/2024 Hunger Vital Sign Answer Date Recorded Within the past 12 months, y ou worried that your food would run out before you got the money to buy more. Never true 03/04/20 24 Within the past 12 months, t he food you bought just didn't last and you didn't have money to get more. Never true 03/04/2024 PRAPARE - Transportation Answer Date Re corded In the past 12 months, has l ack of transportation kept you from medical appointments or from getting medications? No 02/20 In the past 12 months, has l ack of transportation kept you from meetings, work, or from getting things needed for daily living? No 03/04/2024 Housing Stability Vital Sign Answer Bhaskar e Recorded In the last 12 months, was t here a time when you were not able to pay the mortgage or rent on time? No 03/04/2024 In the last 12 months, how many places have you lived? 1 03/04/2024 In the last 12 months, was t here a time when you did not have a steady place to sleep or slept in a long-term (including now)? No 03/04/2024 Sex and Gender Information Value Date Recorded Sex Assigned at Not on file Legal Sex Male 5:40 PM REHABILITATION SPECIALIST Gender Identity Not on file Sexual Orientation Not on file Last Filed Vital Signs Vital Sign Reading Time Taken Comments Blood Pressure 138/90 04/11/2024 11:21 AM CDT Pulse 88 04/11/2024 11:21 AM CDT Temperature 36.7 C (98 F) 04/11/2024 11:21 AM CDT Respiratory Rate 18 04/11/2024 11:21 AM CDT Oxygen Saturation 99% 04/11/2024 11:21 AM CDT Inhaled Oxygen Concentration 21% 01/25/2020 1 2:20 PM CDT Weight 85.5 kg (188 lb 9.6 oz) 04/11/2024 11:21 AM CDT Height 182.9 cm (6') 04/11/2024 11:21 AM CDT Body Mass Index 25.58 04/11/2024 11:21 AM CDT Plan of Treatment Upcoming Encounters Date Type Department Care Team (Late st Contact Info) Description 01/17/2025 2:30 PM CDT Office Visit [facility] - Dermatology [address] [place] [address], [place] [id number] Young Hyde MD [address] [place] [address] 3 [place] [id number] Health Maintenance Due Date Last Done Comments COLOGUARD (AGES 45-75) - COLON CA SCREENING 1968 COLON MONITORING 1968 COLONOSCOPY - COLON CA SCREENING 1968 CT COLONOGRAPHY - COLON CA SCREENING 1968 Colorectal Cancer Screening 1968 FIT - COLON CA SCREENING 1968 FLEX SIG - COLON CA SCREENING 1968 HIV SCREENING 01/17/1983 HEPATITIS B VACCINE (1 of 3 - 19+ 3-dose series) 01/17/1987 PNEUMOCOCCAL VACCINE 50+ (2 of 2 - PCV) 08/11/2016 08/11/2015 ZOSTER VACCINE (1 of 2) 01/17/2018 COVID-19 VACCINE (2 - season) 2024 09/29/2022 DEPRESSION SCREENING 08/23/2024 INFLUENZA VACCINE (Season Ended) 2025 08/11/2015, 05/16/2014, 08/23/2013 SCREENING FOR DIABETES 03/17/2027 , 03/14/2024, 03/12/2024, Additional history exists LIPID TESTING 07/11/2029 07/11/2024 DTAP/TDAP/TD VACCINES (3 - Td or Tdap) 03/03/2034 03/03/2024, 08/23/2009 HEPATITIS C SCREENING Completed 03/07/2024, 024 HIB VACCINE Aged Out No longer eligi ble based on patient's age to complete this topic HPV VACCINE Aged Out No longer eligi ble based on patient's age to complete this topic MENINGOCOCCAL (Group B) VACCINE SHARED DECISION-MAKING Aged Out No longer eligible based on patient's age to complete this topic MENINGOCOCCAL GROUPS A/C/Y/W VACCINE Aged Out No longer eligible based on patient's age to complete this topic Medical Devices Implanted Type Area Corsetier Device Identifier Shelf Expiration Date Model / Serial / Lot Screw Set Ti 4.75mm Spne Nonster Implanted:Qty: 6 on 10/26/2019 by Shamar Vidal MD at [facility] N/A: Spine Medtronic Sofamor [employer]ane[employer] [id number] / / Guanako Spnl 100mm 4.75mm Cd Hzn Solera Crv Implanted:Qty: 1 on 10/26/2019 by Shamar Vidal MD at [facility] N/A: Spine Medtronic Inc [id number] / / Gu[place]ako Spnl 50mm 4.75mm Cd Hzn Solera Crv Implanted:Qty: 1 on 10/26/2019 by Shamar Viadl MD at [facility] N/A: Spine Medtronic Inc [id number] / / Screw 6.5mm 55mm 2 Ld Thrd Frm Ma Clr Cd Implanted:Qty: 2 on 10/26/2019 by Shamar Vidal MD at [facility] N/A: Spine Medtronic Inc [id number] / / Screw 7.5mm 50mm 2 Ld Thrd Frm Ma Clr Cd Implanted:Qty: 2 on 10/26/2019 by Shamar Vidal MD at [facility] N/A: Spine Medtronic Inc [id number] / / Screw 7.5mm 45mm 2 Ld Thrd Frm Ma Clr Cd Implanted:Qty: 1 on 10/26/2019 by Shamar Vidal MD at [facility] N/A: Spine Medtronic Inc [id number] / / Screw 7.5mm 40mm 2 Ld Thrd Frm Ma Clr Cd Implanted:Qty: 1 on 10/26/2019 by Shamar Vidal MD at [facility] N/A: Spine Medtronic Inc [id number] / / Spcr Spnl [id number] Elev Xlordotic Peek Implanted:Qty: 1 on 10/26/2019 by Shamar Vidal MD at [facility] N/A: Spine Medtronic Sofamor Danek Spine 10/02/2027 [id number] / / Graft Tissue Drgn + Bvn Clgn Mtrx 2x2in Implanted:Qty: 1 on 10/26/2019 by Shamar Vidal MD at [facility] N/A: Spine Integra Neurosciences 07/22/2022 [id number] / / [id number] Slnt Dura Duraseal Pg Trilysine Amine 5 Implanted:Qty: 1 on 10/26/2019 by Shamar Vidal MD at [facility] N/A: Spine Integra Lifesciences Cathy 12/20/2020 [id number] / / [id number] Vertigraft Laminoplasty Allograft Bio-Implant 12mm Implanted:Qty: 1 on 01/25/2020 by Shamar Vidal MD at [facility] N/A: Spine Cervical Lifenet 10/02/2023 [id number] / / [id number] Vertigraft Laminoplasty Allograft Bio-Implant 12mm Implanted:Qty: 1 on 01/25/2020 by Shamar Vidal MD at [facility] N/A: Spine Cervical Lifenet 09/01/2022 [id number] / / [id number] Vertigraft Laminoplasty Allograft Bio-Implant 12mm Implanted:Qty: 1 on 01/25/2020 by Shamar Vidal MD at [facility] N/A: Spine Cervical Lifenet 10/02/2023 [id number] / / [id number] Vertigraft Laminoplasty Allograft Bio-Implant 12mm Implanted:Qty: 1 on 01/25/2020 by Shamar Vidal MD at [facility] N/A: Spine Cervical Lifenet 09/01/2022 [id number] / / [id number] Scrw Shawn Selftap Ti W/Recess 2mm X 4mm Implanted:Qty: 8 on 01/25/2020 by Shamar Vidal MD at [facility] N/A: Spine Cervical Synthes Spine [id number] / / Scrw Shawn Selftap Ti W/Recess 2mm X 8mm Implanted:Qty: 7 on 01/25/2020 by Shamar Vidal MD at [facility] N/A: Spine Cervical Synthes Spine [id number] / / Scrw Roseann Ti W/Recess 2.4mm X 6mm Implanted:Qty: 4 on 01/25/2020 by Shamar Vidal MD at [facility] N/A: Spine Cervical Synthes Spine [id number] / / Plate Mini Ti Dbl Bend 2.0mm 35mm/12mm Implanted:Qty: 4 on 01/25/2020 by Shamar Vidal MD at [facility] N/A: Spine Cervical Synthes Spine [id number] / / Scrw Roseann Ti W/Recess 2.4mm X 8mm Implanted:Qty: 1 on 01/25/2020 by Shamar Vidal MD at [facility] N/A: Spine Cervical Depuy Spine [id number] / / Explanted Type Area Corsetier Device Identifier Shelf Expiration Date Model / Serial / Lot Slnt Dura Duraseal Pg Trilysine Amine 5 Explanted:Qty: 1 on 10/26/2019 at [facility] Integra [employer] Cathy 12/20/2020 [id number] / / [id number] Scrw Shawn Selftap Ti W/Recess 2mm X 8mm Explanted:Qty: 1 on 01/25/2020 by Shamar Vidal MD at [facility] N/A: Spine Cervical Synthes Spine [id number] / / Procedures Procedure Name Priority Date/Time Associated Diagnosis Comments BASIC METABOLIC PANEL (CALCIUM TOTAL) Routine 03/17/2024 4:42 AM CDT from Last 3 Months or Most Recently Relevant to Health Maintenance Results * BASIC METABOLIC PANEL (CALCIUM TOTAL) (03/17/2024 4:42 AM CDT) [facility] Glucose 86 70 - 105 mg/dL 03/17/2024 8:06 AM CDT [facility] Sodium 139 136 - 145 mmol/L 03/17/2024 8:06 AM CDT [facility] Potassium 4.1 3.5 - 5.1 mmol/L 03/17/2024 8:06 AM CDT [facility] Chloride 107 98 - 107 mmol/L 03/17/2024 8:06 AM CDT [facility] CO2 22 22 - 29 mmol/L 03/17/2024 8:06 AM CDT [facility] Calcium 9.8 8.4 - 10.4 mg/dL 03/17/2024 8:06 AM CDT [facility] Anion Gap 10 6 - 16 mmol/L 03/17/2024 8:06 AM CDT [facility] BUN 17 7 - 26 mg/dL 03/17/2024 8:06 AM CDT [facility] Creatinine 0.84 0.72 - 1.25 mg/dL 03/17/2024 8:06 AM CDT [facility] eGFR by CKD-EPI >90 >=90 mL/min/1.7 3 m2 03/17/2024 8:06 AM CDT [facility] Blood BLOOD SPECIMEN / Unknown 03/17/2024 4:42 AM CDT 03/17/2024 7:46 AM CDT us Susan Perry MD LAB - CHEMISTRY ORDERABLES Fin al Result [facility] [address] [place] [address] from Last 3 Months or Most Recently Relevant to Health Maintenance Insurance [facility] Advance Directives * Full Code (Latest Code Status on File) Date Activated Date Inactivated Comments 03/11/2024 12:18 PM 03/20/2024 2:43 PM * Full Code Date Activated Date Inactivated Comments 03/04/2024 6:44 AM 03/11/2024 12:12 PM * Full Code Date Activated Date Inactivated Comments 10/05/2023 12:24 PM 10/06/2023 2:48 PM * Full Code Date Activated Date Inactivated Comments 01/25/2020 11:13 AM 02/01/2020 2:02 PM * Full Code Date Activated Date Inactivated Comments 10/26/2019 5:26 PM 10/31/2019 5:46 PM Care Teams Flooring Professional Relationship Specialty Start Date End Date Whit Mendez PA-C [address] [place] [address] PCP - General 10/04/23
--- OUTSIDE RECORDS SUMMARY | 2025-01-02 00:57 | XMS_ITS | Patient Health Record ---
Author Organization Formerly [facility] Address [address] [place] [address] Care Team Providers Care Alarm Signaler Name Role Phone Vinita Leija Primary Care Provider Allergies No Known Allergies Results Component Value Reference Range Notes 12 Panel Urine Drug Screen Reviewed date:12/27/2024 01:41:53 PM Interpretation: Performing Lab: Notes/Report: THC Pos CHARLEY neg MOP (OPI) neg AMP neg MET neg BAR neg BZO neg MDMA neg MTD neg OXY neg PCP neg BUP neg 12 Panel Urine Drug Screen Reviewed date:11/30/2024 10:41:37 AM Interpretation: Performing Lab: Notes/Report: THC Pos CHARLEY neg MOP (OPI) neg AMP neg MET neg BAR neg BZO neg MDMA neg MTD neg OXY neg PCP neg BUP neg Creatinine neg Reason For Referral No Information Medications Medication SIG (Take, Route, Fr equency, Duration) Notes Start Date End Date Status Vivitrol 380 MG as directed Intramus cular every 28 days 11/28/2024 Active Lyrica 50 MG 1 capsule Orally Once a day Active SEROquel 50 MG 1 tablet at bedtime Orally Once a day for 30 day(s) Active Naproxen 500 MG 1 tablet with food o r milk as needed Orally every 12 hrs Active Social History Tobacco Use: Social History Observation Description Date Details (start date - stop date) Current Smoker NA - NA Sex Assigned At : Social History Observation Description Sex Assigned At Male Dont use, Tobacco Use/Smoking Question Answer Notes Are you a current smoker How often do you smoke cigarettes? some days, bu t not every day Tobacco Control (Standard) Question Answer Notes Tobacco use: Current smoker How often do you smoke cigarettes? Some days, bu t not every day How many cigarettes a day do you smoke? 5 or les s Problems Problem Type SNOMED Code ICD Code Onset Dates Problem Status W/U Status Risk Notes Problem Alcohol use disorder (5335419907) Alcohol use disorder (F10.99) Active confirmed Problem Overweight (924093234) Overweight (BMI 25.0-29.9) (E66.3) Active confirmed Problem Tobacco use (952943614) Tobacco use disorder (F17.200) Active confirmed Problem Chronic hepatitis C (771844867) Hepatitis C virus carrier state (B18.2) 07/14/2023 Active confirmed Vital Signs Heart Rate 88 /min 12/27/2024 Temperature 100.2 degrees Fahrenheit 12/27/2024 Respiratory Rate 20 /min 12/27/2024 Blood pressure diastolic 78 mm Hg 12/27/2024 Oximetry 98 % 12/27/2024 Height 72 in 12/27/2024 Blood pressure systolic 120 mm Hg 12/27/2024 Weight 195.6 lbs 12/27/2024 BMI 26.53 kg/m2 12/27/2024 Encounters Encounter Location Date Provider Diagnosis [facility] [address] [place] [address] 11/28/2024 Jenia Hekacie Alcohol use disorder F10.99 and Overweight (BMI 25.0-29.9) E66.3 [facility] [address] [place] [address] 12/27/2024 Jenia Heavewilliam Alcohol use disorder F10.99 ; Overweight (BMI 25.0-29.9) E66.3 and Tobacco use disorder F17.200 Assessments Encounter Date Diagnosis (ICD Code) Assessment Notes Treatment Notes Treatment Clinical Notes Section Notes 11/28/2024 Alcohol use disorder (ICD-10 - F10.99) 11/28/2024 Overweight (BMI 25.0-29.9) (ICD-10 - E66.3) 12/27/2024 Alcohol use disorder (ICD-10 - F10.99) 12/27/2024 Overweight (BMI 25.0-29.9) (ICD-10 - E66.3) 12/27/2024 Tobacco use disorder (ICD-10 - F17.200) 11/28/2024 Other Discussed medication side effects, adverse effects, risks, benefits, as well as interactions. Encouraged non-use of alcohol. Has Vivitrol alert bracelet, necklace, and wallet card. Recommended participation in recovery groups and/or counseling services. May contact office with questions or concerns. Patient may self-administer their own medications or may self-administer their own oral medications per Stewart Protocol. 12/27/2024 Other Discussed medication side effects, adverse effects, risks, benefits, as well as interactions. Encouraged non-use of alcohol. Has Vivitrol alert bracelet, necklace, and wallet card. Recommended participation in recovery groups and/or counseling services. May contact office with questions or concerns. Patient may self-administer their own medications or may self-administer their own oral medications per Stewart Protocol. Plan Of Treatment No Information Insurance Providers Payer Name Payer Address Payer Phone Subscriber Number Group Number Insured Name Patient Relationship to Insured Coverage Start Date Coverage End Date [address] [phone] [id number] RamirezEmir atkinson Self - patient is the insured 5 Medications Administered Medication Instructions Date of Administration Dosage Notes Vivitrol 06/30/2023 380 mg Carlos Arellano othea 06/30/2023 11:23:29 AM > Patient tolerated injection to the left gluteus well, minimal discomfort was observed and reported. Vivitrol 11/28/2024 380 mg Vieyra, Radha e D 11/28/2024 02:00 PM CDT >Given Im LT Gluteus, tolerated well. [facility]# [id number] Vivitrol 12/27/2024 380 mg Vieyra, Radha e D 12/27/2024 02:00 PM CDT >Given Rt Gluteus, tolerated well. [facility]# [id number]. Medical (General) History Medical History History ICD Code Alcohol use disorder Hepatits C Surgical History Surgery Date(Month/Year) 2 neck surgeries 2020 2 back surgeries 2021 3 hernia surgery 1994 Carpal tunnel right wrist 2009 Hand surgery 2023 Hospitalization History Reason Date(Month/Year) Detox x8
--- OUTSIDE RECORDS SUMMARY | 2025-01-02 00:57 | XMS_ITS | Encounter Summary ---
Author Organization [facility] Address [address] [facility] [place] [address] Care Team Providers Care Corporate Law Specialist Name Role Phone Ricci Ni MD Primary Care Provider + Whit Mendez PA-C Primary Care Provider [phone] Encounter Details Date Type Department Care Team (Late st Contact Info) Description 09/15/2023 Telephone [facility] [address] [place] [address] Brandon Peguero MD [facility] [place] [address] Social History Tobacco Use Types Packs/Day Years Used Date Smoking Tobacco: Some Days Cigarettes 0.3 28 Smokeless Tobacco: Never Comments:3-4 cig daily Alcohol Use Standard Drinks/Week Comments Not Currently 0 (1 standard drink = 0.6 oz pur e alcohol) clean since 2015 AUDIT-C Answer Date Recorded Frequency of Alcohol Consumption Never 06/06/2019 Average Number of Drinks Not on file 019 Frequency of Binge Drinking Not on file 05/23 Sex and Gender Information Value Date Recorded Sex Assigned at Not on file Legal Sex 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 Answer Date of Assessment Author No 01/26/2020 3:00 PM CDT Ellen Garza RN * Is person blind or have serious difficulty seeing? Answer Date of Assessment Author No 01/26/2020 3:00 PM CDT Ellen Garza RN * Does person have serious difficulty walking/climbing stairs? Answer Date of Assessment Author No 01/26/2020 3:00 PM CDT Ellen Garza RN * Does person have difficulty dressing/bathing? Answer Date of Assessment Author No 01/26/2020 3:00 PM CDT Ellen Garza RN * Does person have difficulty doing errands alone? Answer Date of Assessment Author No 01/26/2020 3:00 PM CDT Ellen Garza RN documented as of this encounter Mental Status * Does person have difficulty concentrating/remembering/making decisions? Answer Entry Date Author No 01/26/2020 3:00 PM CDT Ellen Garza RN documented in this encounter Plan of Treatment Upcoming Encounters Date Type Department Care Team (Late st Contact Info) Description 01/17/2025 2:30 PM CDT Office Visit [facility] - Dermatology [address] [place] [address], [place] [address] Young Hyde MD [address] [place] [address] 3 [place] [address] documented as of this encounter Visit Diagnoses Not on filedocumented in this encounter Additional Health Concerns Infection Onset Date Last Indicated Resolved Time COVID-19 Under Investigation 03/05/2024 03/05/2024 03/05/2024 9:53 PM CDT documented as of this encounter Care Teams Corporate Law Specialist Relationship Specialty Start Date End Date Ricci Ni MD PCP - General 05/09/19 10/03/23 Whit Mendez PA-C [address] [place] [address] PCP - General 10/04/23 documented as of this encounter
--- OUTSIDE RECORDS SUMMARY | 2025-01-02 00:57 | XMS_ITS | Encounter Summary ---
Author Organization [facility] Address [address] [place] [address] Care Team Providers Care Neuropsychology Division Chief Name Role Phone Whit Mendez PA-C Primary Care Provider [phone] None, Provider Primary Care Provider Whit Love PA-C Primary Care Provider [phone] Herminia Roach MD Primary Care Provider [phone] Encounter Details Date Type Department Care Team (Late st Contact Info) Description 06/28/2023 Business Lab Message Enc [facility] [address] [place] [address] Lauren, [facility] Provider Scheduled Colonoscopy Social History Tobacco Use Types Packs/Day Years Used Date Smoking Tobacco: Former Cigarettes 0.3 10 Smokeless Tobacco: Never Comments:Informed of risks. Alcohol Use Standard Drinks/Week Comments Not Currently 0 (1 standard drink = 0.6 oz pur e alcohol) Per pt quit - PHQ-2 Answer Date Recorded Patient Health Questionnaire-2 Score 1 03/09/2023 Education Answer Date Recorded What is the highest level of school you have completed or the highest degree you have received? Associate degree: academic program 02/14/2019 Sex and Gender Information Value Date Recorded Sex Assigned at Male 08/07/2021 10:20 PM MANAGER MEAT Legal Sex Male 6:12 PM MANAGER MEAT Gender Identity Male 08/07/2021 10:20 PM MANAGER MEAT Sexual Orientation Straight 08/07/2021 10 :20 PM MANAGER MEAT documented as of this encounter Functional Status * Calculated C-SSRS Risk Score (Lifetime/Recent) Answer Date of Assessment Author Status No Risk Indicated 06/30/2023 8:37 PM MANAGER MEAT Ashlyn Bull RN Active * [place] Suicide Severity Rating Scale (Screener/Recent Self-Report) Question Answer Date of Assessment Author Status 1. Wish to be (Past 1 Month) No 06/30/2023 8:37 PM MANAGER MEAT Monica Bull RN Ac tive 2. Non-Specific Active Suicidal Thoughts (Past 1 Month) No 06/30/2023 8:37 PM MANAGER MEAT Monica Bull RN Ac tive 6. Suicidal Behavior (Lifetime) No 06/30/2023 8:37 PM MANAGER MEAT Monica Bull, RN Francisco tive documented as of this encounter Plan of Treatment Upcoming Encounters Date Type Department Care Team (Late st Contact Info) Description 02/12/2025 2:00 PM CDT Office Visit [facility] Orthopedic Surgery [facility] [address] [place] [address] [place] [address] [place] [address] documented as of this encounter Visit Diagnoses Not on filedocumented in this encounter Additional Health Concerns Infection Onset Date Last Indicated Resolved Time COVID-19 Rule Out 08/01/2023 08/01/2023 08/01/2023 5:19 PM MANAGER MEAT Assessment Noted Time PHQ-9 Depression Total Score: 7 03/09/20 23 1:35 PM CDT documented as of this encounter Care Teams Neuropsychology Division Chief Relationship Specialty Start Date End Date Whit Mendez PA-C PCP - General PHYSICIAN SHIP ERECTOR 03/25/23 06/29/23 None, MD Jaya PCP - General UNKNOWN PHYSICIAN SPECIALTY 06/30/23 07/18/23 Whit Mendez PA-C PCP - General PHYSICIAN SHIP ERECTOR 07/19/23 09/03/24 [place] [id number] [address] PCP - General INTERNAL MEDICINE 09/04/24 documented as of this encounter
--- OUTSIDE RECORDS SUMMARY | 2025-01-02 00:57 | XMS_ITS | Encounter Summary ---
Author Organization [facility] Address [address] [place] [address] Care Team Providers Care Product Manager E Commerce Name Role Phone JOHANNA WilsonP-Gina DIAZ Primary Care Provider Ricci Ni MD Primary Care Provider U navailGeraldine Cardenas [facility] Primary Care Provider + Geraldine Gregory [facility] Primary Care Provider + Whit Mendez-Baldemar Primary Care Provider [phone] None, Provider Primary Care Provider Unavaila Whit Blackmon PA-Baldemar Primary Care Provider [phone] Herminia Roach MD Primary Care Provider Encounter Details Date Type Department Care Team (Late st Contact Info) Description 11/06/2017 Abstract [facility] CONVERSION [address] [place] [address] , Generic Conversion, Social History Tobacco Use Types Packs/Day Years Used Date Smoking Tobacco: Never Assessed Sex and Gender Information Value Date Recorded Sex Assigned at Male 08/07/2021 10:20 PM LOAN OFFICER Legal Sex Male 6:12 PM LOAN OFFICER Gender Identity Male 08/07/2021 10:20 PM LOAN OFFICER Sexual Orientation Straight 08/07/2021 10 :20 PM LOAN OFFICER documented as of this encounter Plan of Treatment Upcoming Encounters Date Type Department Care Team (Late st Contact Info) Description 02/12/2025 2:00 PM CDT Office Visit [facility] Medical Group Orthopedic Surgery - [place] [address] [address] [place] [address] [place] [address] [address] [place], [place] [address] documented as of this encounter Visit Diagnoses Not on filedocumented in this encounter Additional Health Concerns Infection Onset Date Last Indicated Resolved Time COVID-19 Rule Out 06/13/2020 06/13/2020 06/15/2020 8:31 AM CDT COVID-19 Rule Out 08/01/2021 08/01/2021 08/01/2021 9:44 AM LOAN OFFICER COVID-19 Confirmed 08/27/2021 08/27/2021 12:33 AM LOAN OFFICER COVID-19 Rule Out 08/28/2021 08/27/2021 08/28/2021 2:31 PM LOAN OFFICER COVID-19 Rule Out 03/11/2022 03/11/2022 03/11/2022 10:32 PM CDT COVID-19 Rule Out 08/01/2023 08/01/2023 08/01/2023 5:19 PM LOAN OFFICER documented as of this encounter Care Teams Product Manager E Commerce Relationship Specialty Start Date End Date Gina [place] V [facility]- [address] [place] [address] [place] [address] PCP - General Nurse Practitioner Family 10/20/1803/24 Ricci Ni MD [address] [place] [address] [place] [address] PCP - General INTERNAL MEDICINE 04/21/19 11/26/22 Geraldine Gregory FNP-JOE [address] [place] [address] [place] [address] PCP - General Nurse Practitioner Family 11/27/2202/20 Geraldine Gregory FNP-JOE [address] [place] [address] [place] [address] PCP - General Nurse Practitioner Family 03/09/2303/24 Whit Mendez PA-C [address] [place] [address] [place] [address] PCP - General PHYSICIAN ENGINEERING LABORATORY TECHNICIAN 03/25/23 06/29/23 None, Provider, PCP - General UNKNOWN PHYSICIAN SPECIALTY 06/30/23 07/18/23 Whit Mendez PA-C [address] [place] [address] [place] [address] PCP - General PHYSICIAN ENGINEERING LABORATORY TECHNICIAN 07/19/23 09/03/24 [place] [address] [address] PCP - General INTERNAL MEDICINE 09/04/24 documented as of this encounter
[2025-01-02 13:39] VITALS: BP 121/77; PULSE 57; RESP 16; TEMP 36.1; O2SAT 100; BMI 25.0
[2025-01-02] MEDS: LACTATED RINGERS 1,000 ML 150 ML IV CONT (13:49)
--- NOTE | 2025-01-02 14:05 | WPDANESEPPF ---
Anes - Initial Pre Proc Eval Procedure: Operation Date: 01/02/25 14:30 Proposed Procedures p Esophagogastroduodenoscopy & Colonoscopy - Marcelino Jeffery MD Date/Time: 01/02/25 14:05 Surgeon: Marcelino Jeffery MD Pre Op Diagnosis: Melena,Nausea w/vomiting,hx colon polyps Patient Data Age: 54 Gender: M Height: 1.83 m Weight: 83.6 kg Last Vital Signs Temp 36.1 C L 01/02/25 13:39 Pulse 57 L 01/02/25 13:39 Resp 16 01/02/25 13:39 BP 121/77 01/02/25 13:39 Pulse Ox 100 01/02/25 13:39 O2 Del Method Room Air 01/02/25 13:39 Allergies Allergy/AdvReac Type Severity Reaction Status Date / Time No Known Allergies Allergy Verified 01/02/25 13:37 Home Medications ?Medication ?Instructions ?Recorded ?Confirmed ?Type mirtazapine 15 mg tablet 15 mg PO HS #30 tabs 02/09/20 11/22/24 Rx naproxen sodium 220 mg tablet 220 mg PO BID PRN pain 09/18/24 11/22/24 History (Flanax (naproxen)) omeprazole 40 mg capsule,delayed 40 mg PO DAILY #30 caps 09/18/24 11/22/24 Rx release ondansetron 4 mg disintegrating 4 mg PO Q8H #30 tabs 09/18/24 11/22/24 Rx tablet pregabalin 50 mg capsule (Lyrica) 50 mg PO BID 09/18/24 11/22/24 History quetiapine 25 mg tablet (Seroquel) 25 mg PO QHS 09/18/24 11/22/24 History Patient hx anesthesia problems: none Family hx anesthesia problems: none Results Review: All pre-operative results and documents have been reviewed as part of the pre-operative evaluation. [facility], [facility] Past Medical History Medical History Cervical radiculopathy Cervical spondylosis Cervical myelopathy Surgical History Surgical History S/P lumbar fusion S/P cervical spinal fusion Social History Social History Years smoked: 25 Smoking status: Current every day smoker Tobacco type: cigarettes Second hand tobacco smoke exposure: Yes Alcohol intake: current Alcohol use details: alcohol abuse, 1 month clean Substance use: current Substance use type: marijuana Other substance usage details: smokes marijuana daily, former cocaine user Living arrangements: with family Spiritual care concerns: No Anes - Eval Final PreProcedure Day of Procedure 01/02/25 14:05 Patient weight: normal Heart: regular rate and rhythm Lungs: decreased breath sounds Airway: Mallampati scale class II Neurological: alert and oriented Last oral intake: >/= 8 hours ASA classification: III Emergent: no Anesthetic plan: proceed Anesthesia type and monitoring: general GIVS and standard monitoring Results Review: All pre-operative results and documents have been reviewed as part of the pre-operative evaluation. Informed Consent: The patient's anesthetic plan and its attendant risks and benefits were discussed with the patient/family/POA. Questions were solicited and answers provided to the satisfaction of the patient/family/POA.
--- NOTE | 2025-01-02 14:31 | PM.HPGS ---
History of Present Illness History of Present Illness Consent: Risks, benefits, and alternatives have been discussed and questions answered. Patient agrees to proceed with procedure. Chief complaint: Melena,Nausea w/vomiting,hx colon polyps Narrative: Emir Guzmán is a 54 year old male who presented earlier this year to office with nausea but this has improved, also colon polyp in 2017 Review of Systems Review of Systems: All systems reviewed & are unremarkable except as noted in HPI and below PMFSH Past Medical History Medical History (Updated 01/02/25 @ 14:32 by Marcelino Jeffery MD) Nausea Cervical radiculopathy Cervical spondylosis Cervical myelopathy Surgical History Surgical History S/P lumbar fusion S/P cervical spinal fusion Social History Social History Years smoked: 25 Smoking status: Current every day smoker Tobacco type: cigarettes Second hand tobacco smoke exposure: Yes Alcohol intake: current Alcohol use details: alcohol abuse, 1 month clean Substance use: current Substance use type: marijuana Other substance usage details: smokes marijuana daily, former cocaine user Living arrangements: with family Spiritual care concerns: No Meds Home Medications and Allergies Home Medications ?Medication ?Instructions ?Recorded ?Confirmed ?Type mirtazapine 15 mg tablet 15 mg PO HS #30 tabs 02/09/20 11/22/24 Rx naproxen sodium 220 mg tablet 220 mg PO BID PRN pain 09/18/24 11/22/24 History (Flanax (naproxen)) omeprazole 40 mg capsule,delayed 40 mg PO DAILY #30 caps 09/18/24 11/22/24 Rx release ondansetron 4 mg disintegrating 4 mg PO Q8H #30 tabs 09/18/24 11/22/24 Rx tablet pregabalin 50 mg capsule (Lyrica) 50 mg PO BID 09/18/24 11/22/24 History quetiapine 25 mg tablet (Seroquel) 25 mg PO QHS 09/18/24 11/22/24 History Allergies Allergy/AdvReac Type Severity Reaction Status Date / Time No Known Allergies Allergy Verified 01/02/25 13:37 Vital Signs Vital Signs - 24 hr 01/02/25 13:39 Temperature 97 F L Pulse Rate 57 L Respiratory Rate 16 Blood Pressure 121/77 Pulse Oximetry 100 Oxygen Delivery Room Air Exam Const: General: comfortable and no acute distress HENMT: Face/Nose/Sinus: Normal nares present Eyes: General: appearance normal, both eyes and all related structures Neck: Neck: no JVD Resp: Auscultation: clear to auscultation bilaterally Cardio: Rate: regular rate Rhythm: regular rhythm GI: Inspection: non-distended GI Palp: Yes Soft to palpation Skin: General skin exam: normal color Neuro: General: gait normal Speech: normal speech Extrem: General: normal to inspection Psych: Mental Status: mental status grossly normal Assessment and Plan Assessment and plan (1) Nausea: Code(s): R11.0 - Nausea Status: Acute Assessment and Plan: egd (2) Personal history of colon polyps, unspecified: Code(s): Z86.0100 - Personal history of colon polyps, unspecified Status: Acute Assessment and Plan: colonoscopy
--- NOTE | 2025-01-02 14:40 | SUR.OPER ---
EGD [id number]. Colonoscopy start time 1442.
[2025-01-02 14:55] VITALS: BP 104/69; PULSE 62; RESP 25; O2SAT 100
[2025-01-02 15:05] VITALS: BP 105/74; PULSE 57; RESP 16; O2SAT 100
[2025-01-02 15:15] VITALS: BP 140/90; PULSE 64; RESP 20; O2SAT 100
== END 2025-01-02 15:36 | disposition home or self-care (01) ==
PROVIDERS: PCP Internal Medicine; Referring Provider Nurse Practitioner Family; Visit Provider Internal Medicine Gastroenterology
PROC: 0DJ08ZZ Inspection of Upper Intestinal Tract, Via Natural or Artificial Opening Endoscopic (ICD-10-PCS; CPT 45378; principal; 2025-01-02 14:30)
DX: K57.30 Diverticulosis of large intestine without perforation or abscess without bleeding (principal); K29.50 Unspecified chronic gastritis without bleeding; M43.02 Spondylolysis, cervical region; F17.210 Nicotine dependence, cigarettes, uncomplicated; F12.90 Cannabis use, unspecified, uncomplicated; Z79.1 Long term (current) use of non-steroidal anti-inflammatories (NSAID); Z98.1 Arthrodesis status; Z86.0100 Personal history of colon polyps, unspecified
CPT/HCPCS: 43239; 45378; 88305; 88312; 88342; J2003; J2704; J7120